=== PATIENT | female | born 1965 | race Caucasian/White ===

== ENCOUNTER 2016-05-14 17:20 | Emergency (ER) | payer OTHER ==
[2016-05-14] MEDS ORDERED: APRESOLINE IV ONE (20:22)
[2016-05-14 20:44] LABS: Hematocrit 32.2 % (30.3-42.9); Hemoglobin 10.5 gm/dl (10.1-14.3); Mean Corpuscular HGB Conc 33 % (30-34); Mean Corpuscular Hemoglobin 27 pg (28-32); Mean Corpuscular Volume 82 fl (79-97); Platelet Count 280 K/mm3 (140-440); Red Blood Count 3.91 M/mm3 (3.65-5.03); Red Cell Distribution Width 14.4 % (13.2-15.2); White Blood Count 10.5 K/mm3 (4.5-11.0)
[2016-05-14 20:54] LABS: INR 0.97 (0.87-1.13)
[2016-05-14 20:56] LABS: Partial Thromboplastin Time 38.5 Sec. (24.2-36.6)
[2016-05-14 21:02] LABS: Anion Gap 18 mmol/L; Blood Urea Nitrogen 7 mg/dL (7-17); Calcium 8.4 mg/dL (8.4-10.2); Carbon Dioxide 23 mmol/L (22-30); Chloride 100.4 mmol/L (98-107); Glucose 255 mg/dL (65-100); Potassium 3.8 mmol/L (3.6-5.0); Sodium 138 mmol/L (137-145)
[2016-05-14] MEDS ORDERED: NORMODYNE PO ONE (21:29)
--- NOTE | 2016-05-14 21:49 | Emergency Department Report ---
HPI - General Chief Complaint: Chest Pain Time Seen by Provider: 05/14/16 19:25 - HPI HPI: The patient is a 50-year-old female with a history of hypertension, who presents for evaluation of palpitations. The patient states that for the past week she has experienced intermittent self resolving episodes of racing of the heart, moderate to severe, exacerbated with lying flat at nighttime. She also complains of episodes of mild tiredness, elicited with exertion, relieved with rest, also for the past one to 2 weeks. The patient denies fever, neck pain, chest pain, parasthesias, dyspnea, cough, hemoptysis, syncope, unilateral leg swelling, calf muscle pain, history of DVT or PE, recent immobilization, or history of cancer. She shares that she also presents to the emergency department secondary to recurrent episodes of elevated blood pressure. ED Past Medical Hx - Past Medical History Previous Medical History?: Yes Hx Hypertension: Yes Hx Diabetes: Yes - Surgical History Past Surgical History?: No - Social History Smoking Status: Never Smoker Substance Use Type: None - Medications Home Medications: Home Medications Medication Instructions Recorded Confirmed Last Taken Type Furosemide [Lasix TAB] 40 mg PO QDAY PRN 05/14/16 05/14/16 Unknown History Hydrochlorothiazide [HCTZ] 25 mg PO QDAY 05/14/16 05/14/16 05/14/16 History Labetalol HCl 600 mg PO BID 05/14/16 05/14/16 05/14/16 History Potassium Chloride [K-Dur] 20 meq PO QDAY 05/14/16 05/14/16 05/14/16 History cloNIDine [Catapres] 0.1 mg PO BID PRN 05/14/16 05/14/16 Unknown History metFORMIN [Glucophage] 500 mg PO BID 05/14/16 05/14/16 05/14/16 History ED Review of Systems ROS: Stated complaint: SOB/CHEST PAIN Other details as noted in HPI Constitutional: denies: fever; reports tiredness ENT: denies: throat or neck pain Respiratory: denies: cough, shortness of breath Cardiovascular: reports palpitations denies: chest pain Endocrine: denies unexplained weight loss or gain Gastrointestinal: denies: abdominal pain, nausea Genitourinary: denies: dysuria Musculoskeletal: denies: leg swelling Skin: denies: rash Neurological: denies: headache Hematological/Lymphatic: denies: easy bleeding or easy bruising Psych: denies sadness or hopelessness Physical Exam - Physical Exam Vital Signs: Vital Signs 05/14/16 05/14/16 05/14/16 17:41 19:38 20:03 Temperature 98.9 F Pulse Rate 91 H 88 Respiratory 18 18 18 Rate Blood Pressure 149/72 Blood Pressure 170/88 [Right] O2 Sat by Pulse 99 100 100 Oximetry 05/14/16 05/14/16 20:36 21:00 Temperature Pulse Rate 81 97 H Respiratory 20 Rate Blood Pressure 179/81 Blood Pressure 168/82 [Right] O2 Sat by Pulse 100 Oximetry Physical Exam: General: well-nourished, well-developed, no acute distress Head: Normocephalic, atraumatic Eyes: normal sclera ENT: Mucous membranes are pink and moist Neck: trachea midline, neck supple, No neck stiffness, no cervical adenopathy Respiratory: Breath sounds equal bilaterally, no wheezing, rales, or rhonchi Cardio: S1 and S2 present, no murmurs, rubs, gallops, capillary refill is brisk Abdomen: Normoactive bowel sounds, soft abdomen, no rigidity, no guarding or rebound tenderness Musc: No pitting edema of legs Skin: No rash Neuro: no facial drooping, normal speech Psych: Normal affect ED Course Vital Signs 05/14/16 05/14/16 05/14/16 17:41 19:38 20:03 Temperature 98.9 F Pulse Rate 91 H 88 Respiratory 18 18 18 Rate Blood Pressure 149/72 Blood Pressure 170/88 [Right] O2 Sat by Pulse 99 100 100 Oximetry 05/14/16 05/14/16 20:36 21:00 Temperature Pulse Rate 81 97 H Respiratory 20 Rate Blood Pressure 179/81 Blood Pressure 168/82 [Right] O2 Sat by Pulse 100 Oximetry ED Medical Decision Making - Lab Data Result diagrams: 05/14/16 20:30 05/14/16 20:30 - Medical Decision Making The patient was seen and examined by myself. The patient is placed on a quality assurance monitor and continuous pulse ox. On initial evaluation, the patient was found to be in no distress. EKG exhibited normal sinus rhythm and rate, and was negative for arrhythmia or findings suggestive of ACS. Labs and imaging are obtained. The patient is given IV hydralazine for her elevated blood pressure. Chest x-ray is negative for pneumothorax, focal consolidation, pulmonary vascular congestion, pleural effusion, or other obvious acute cardiopulmonary disease process. Lab results were non-concerning including nml levels of TSH, T4, BNP, troponin, WBC, hemoglobin, hematocrit, electrolytes, renal function. On reexamination the patient's blood pressure was found to decrease outside of range concerning for hypertensive emergency. The patient is stable for discharge with outpatient follow-up. The patient is given follow-up and return instructions. The patient expressed understanding and agreed with the plan. The patient is discharged in stable condition. Critical care attestation.: If time is entered above; I have spent that time in minutes in the direct care of this critically ill patient, excluding procedure time. ED Disposition Clinical Impression: Hypertensive urgency, Palpitations, Acute hyperglycemia Disposition: DISCHARGED TO HOME OR SELFCARE Is pt being admited?: No Does the pt Need Aspirin: No Condition: Stable Instructions: Chronic Hypertension (ED), Diabetic Hyperglycemia (ED) Referrals: PRIMARY CARE, [Primary Care Provider] - 3-5 Days Time of Disposition: 21:32
[2016-05-14] MEDS ORDERED: TYLENOL ONE (22:48)
[2016-05-14] MEDS ORDERED: TYLENOL PO ONE (22:53)
[2016-05-14 22:58] VITALS: BP 142/90
--- NOTE | 2016-05-15 08:13 | XRay Report ---
AP CHEST : 05/14/16 20:31 CLINICAL: Chest pain. COMPARISON:None FINDINGS: Normal heart and pulmonary vessels. The lungs are normally expanded and clear. The bones and soft tissues are unremarkable. IMPRESSION: Normal chest.
== END 2016-05-14 22:57 | disposition home or self-care (01) ==
LOC: ED 17:20
DX: I10 Essential (primary) hypertension (principal); R00.2 Palpitations; E11.65 Type 2 diabetes mellitus with hyperglycemia
CPT/HCPCS: 36415; 71010; 80048; 82962; 83880; 84439; 84443; 84484; 84703; 85027; 85610; 85730; 93005; 93010; 96374; 99284; J0360

== ENCOUNTER 2016-10-24 16:02 | Emergency (ER) | payer OTHER ==
[2016-10-24 16:21] VITALS: BP 118/64
[2016-10-24 17:02] LABS: Anion Gap 19 mmol/L; Blood Urea Nitrogen 14 mg/dL (7-17); Calcium 8.5 mg/dL (8.4-10.2); Carbon Dioxide 26 mmol/L (22-30); Chloride 95.7 mmol/L (98-107); Glucose 194 mg/dL (65-100); Potassium 3.3 mmol/L (3.6-5.0); Sodium 137 mmol/L (137-145)
--- NOTE | 2016-10-24 17:03 | XRay Report ---
ROUTINE CHEST, TWO VIEWS: SOB. PA and lateral views demonstrate the heart and mediastinal contour to be of normal size and shape. The lungs are clear and fully expanded and the soft tissues and bony structures are normal. IMPRESSION: Normal study.
[2016-10-24 17:04] LABS: Basophils % (Auto) 0.6 % (0.0-1.8); Eosinophils % (Auto) 1.4 % (0.0-4.3); Hematocrit 25.4 % (30.3-42.9); Hemoglobin 8.4 gm/dl (10.1-14.3); Mean Corpuscular HGB Conc 33 % (30-34); Mean Corpuscular Hemoglobin 27 pg (28-32); Mean Corpuscular Volume 81 fl (79-97); Platelet Count 300 K/mm3 (140-440); Red Blood Count 3.13 M/mm3 (3.65-5.03); Red Cell Distribution Width 14.2 % (13.2-15.2); White Blood Count 9.4 K/mm3 (4.5-11.0)
== END 2016-10-24 19:48 | disposition left against medical advice (07) ==
LOC: ED 16:02
DX: E86.0 Dehydration (principal); R06.02 Shortness of breath; E11.9 Type 2 diabetes mellitus without complications; I10 Essential (primary) hypertension; Z88.1 Allergy status to other antibiotic agents; Z88.8 Allergy status to other drugs, medicaments and biological substances; Z53.21 Procedure and treatment not carried out due to patient leaving prior to being seen by health care provider
CPT/HCPCS: 36415; 71020; 80048; 84484; 84703; 85025; 93005; 93010

== ENCOUNTER 2016-10-25 13:10 | Emergency (ER) | payer OTHER ==
[2016-10-25 14:17] LABS: Basophils % (Auto) 0.6 % (0.0-1.8); Eosinophils % (Auto) 1.8 % (0.0-4.3); Hematocrit 24.4 % (30.3-42.9); Mean Corpuscular HGB Conc 33 % (30-34); Mean Corpuscular Hemoglobin 27 pg (28-32); Mean Corpuscular Volume 82 fl (79-97); Platelet Count 275 K/mm3 (140-440); Red Blood Count 2.99 M/mm3 (3.65-5.03); Red Cell Distribution Width 14.2 % (13.2-15.2); White Blood Count 9.4 K/mm3 (4.5-11.0)
[2016-10-25 14:37] LABS: Alanine Aminotransferase 11 units/L (7-56); Albumin 3.4 g/dL (3.9-5); Alkaline Phosphatase 52 units/L (35-129); Anion Gap 21 mmol/L; Blood Urea Nitrogen 12 mg/dL (7-17); Calcium 8.6 mg/dL (8.4-10.2); Carbon Dioxide 23 mmol/L (22-30); Chloride 98.1 mmol/L (98-107); Glucose 243 mg/dL (65-100); Potassium 3.2 mmol/L (3.6-5.0); Sodium 139 mmol/L (137-145); Total Protein 6.7 g/dL (6.3-8.2)
[2016-10-25] MEDS ORDERED: NACL 0.9% 1000 ML 1,000 ML IV ONE ×2 (14:37→14:58)
--- NOTE | 2016-10-25 16:19 | Emergency Department Report ---
HPI - General Chief Complaint: Dizziness Time Seen by Provider: 10/25/16 14:49 - HPI HPI: Patient is a 51-year-old female with a history of chronic anemia, presents for evaluation of dizziness and generalized weakness. The patient reports for the past greater than one week, she has experienced on and off dizziness and generalized weakness, severe and constant for the past one day, exacerbated with standing up and exertion, and improved with lying flat and wrist. The patient denies fever, headache, neck pain, paresthesias, focal motor weakness, blurry vision, ear pain, tinnitus, chest pain, hemoptysis, dyspnea, abdominal pain, confusion or altered mental status, or recent URI or diarrhea. ED Past Medical Hx - Past Medical History Hx Hypertension: Yes Hx Diabetes: Yes - Surgical History Additional Surgical History: - Social History Smoking Status: Never Smoker Substance Use Type: None - Medications Home Medications: Home Medications Medication Instructions Recorded Confirmed Last Taken Type Furosemide [Lasix TAB] 40 mg PO QDAY PRN 05/14/16 05/14/16 Unknown History Hydrochlorothiazide [HCTZ] 25 mg PO QDAY 05/14/16 05/14/16 05/14/16 History Labetalol HCl 600 mg PO BID 05/14/16 05/14/16 05/14/16 History Potassium Chloride [K-Dur] 20 meq PO QDAY 05/14/16 05/14/16 05/14/16 History cloNIDine [Catapres] 0.1 mg PO BID PRN 05/14/16 05/14/16 Unknown History metFORMIN [Glucophage] 500 mg PO BID 05/14/16 05/14/16 05/14/16 History Iron,Carbonyl [Iron Chews] 15 mg PO QDAY #20 tab.chew 10/25/16 Unknown Rx ED Review of Systems ROS: Stated complaint: SOB/WEAK Other details as noted in HPI Constitutional: denies: fever; reports lightheadedness ENT: denies: throat or neck pain Respiratory: denies: cough, shortness of breath Cardiovascular: denies: chest pain Endocrine: denies unexplained weight loss or gain Gastrointestinal: denies: abdominal pain, nausea Genitourinary: denies: dysuria Musculoskeletal: denies: leg swelling Skin: denies: rash Neurological: denies: headache Hematological/Lymphatic: denies: easy bleeding or easy bruising Psych: denies sadness or hopelessness Physical Exam - Physical Exam Vital Signs: Vital Signs 10/25/16 10/25/16 10/25/16 13:28 14:09 14:10 Temperature 98.1 F Pulse Rate 93 H 100 H 101 H Respiratory 16 14 Rate Blood Pressure 122/60 O2 Sat by Pulse 100 Oximetry 10/25/16 10/25/16 10/25/16 14:11 14:12 14:13 Temperature Pulse Rate 96 H 97 H 95 H Respiratory 14 23 21 Rate Blood Pressure 125/69 120/73 117/65 O2 Sat by Pulse 100 99 Oximetry 10/25/16 10/25/16 10/25/16 14:14 14:16 14:30 Temperature Pulse Rate 94 H 93 H 92 H Respiratory 15 14 12 Rate Blood Pressure 117/65 117/65 120/66 O2 Sat by Pulse 100 100 100 Oximetry 10/25/16 10/25/16 10/25/16 15:00 15:30 16:00 Temperature Pulse Rate 87 81 91 H Respiratory 16 13 13 Rate Blood Pressure 120/66 111/57 150/89 O2 Sat by Pulse 100 100 100 Oximetry Physical Exam: General: well-nourished, well-developed, no acute distress Head: Normocephalic, atraumatic Eyes: normal sclera ENT: Mucous membranes are pale and dry Neck: No neck stiffness, no cervical adenopathy Respiratory: Breath sounds equal bilaterally, no wheezing, rales, or rhonchi Cardio: S1 and S2 present, no murmurs, rubs, gallops, capillary refill is delayed Abdomen: Normoactive bowel sounds, soft abdomen, no rigidity, no guarding or rebound tenderness Chest WALL/Back: No tenderness to palpation of the chest wall, no CVA tenderness with percussion Musc: No pitting edema Skin: No rash Neuro: no facial drooping, normal speech Psych: Normal affect ED Course Vital Signs 10/25/16 10/25/16 10/25/16 13:28 14:09 14:10 Temperature 98.1 F Pulse Rate 93 H 100 H 101 H Respiratory 16 14 Rate Blood Pressure 122/60 O2 Sat by Pulse 100 Oximetry 10/25/16 10/25/16 10/25/16 14:11 14:12 14:13 Temperature Pulse Rate 96 H 97 H 95 H Respiratory 14 23 21 Rate Blood Pressure 125/69 120/73 117/65 O2 Sat by Pulse 100 99 Oximetry 10/25/16 10/25/16 10/25/16 14:14 14:16 14:30 Temperature Pulse Rate 94 H 93 H 92 H Respiratory 15 14 12 Rate Blood Pressure 117/65 117/65 120/66 O2 Sat by Pulse 100 100 100 Oximetry 10/25/16 10/25/16 10/25/16 15:00 15:30 16:00 Temperature Pulse Rate 87 81 91 H Respiratory 16 13 13 Rate Blood Pressure 120/66 111/57 150/89 O2 Sat by Pulse 100 100 100 Oximetry ED Medical Decision Making - Lab Data Result diagrams: 10/25/16 13:56 10/25/16 13:56 - Medical Decision Making The patient was seen and examined by myself. The patient is placed on a monitor technician and continuous pulse ox. On initial evaluation, the patient was found to be in no distress. Evaluation orders were placed. The patient is given 1 L normal saline fluid bolus for treatment of dehydration. Lab results reveal low hemoglobin of 8, with normal platelet level, coags, and BNP. The patient was reevaluated and reported that their symptoms were markedly improved. The patient is stable for discharge with outpatient follow-up. The patient is given follow-up and return instructions. The patient expressed understanding and agreed with the plan. The patient is discharged in stable condition. Critical care attestation.: If time is entered above; I have spent that time in minutes in the direct care of this critically ill patient, excluding procedure time. ED Disposition Clinical Impression: Anemia due to blood loss, acute, Dehydration, Generalized weakness, Orthostatic dizziness Disposition: - TO HOME OR SELFCARE Is pt being admited?: No Does the pt Need Aspirin: No Condition: Stable Instructions: Dehydration (ED), Iron Deficiency Anemia (ED), Weakness (ED), Dizziness (ED), Anemia (ED) Prescriptions: Iron,Carbonyl [Iron Chews] 15 mg PO QDAY #20 tab.chew Referrals: PRIMARY CARE, [Primary Care Provider] - 3-5 Days Time of Disposition: 16:19
[2016-10-25 17:38] VITALS: BP 158/85
== END 2016-10-25 17:38 | disposition home or self-care (01) ==
LOC: ED 13:10
DX: D62 Acute posthemorrhagic anemia (principal); E86.0 Dehydration; R53.1 Weakness; R42 Dizziness and giddiness; I10 Essential (primary) hypertension; E11.9 Type 2 diabetes mellitus without complications
CPT/HCPCS: 36415; 80053; 83880; 85025; 85379; 86850; 86900; 86901; 93005; 93010; 96360; 96361; 99284; J7030

== ENCOUNTER 2016-10-28 16:03 | Emergency (ER) | payer OTHER ==
--- NOTE | 2016-10-28 16:42 | Emergency Department Report ---
Chief Complaint: Weakness Stated Complaint: LBP Time Seen by Provider: 10/28/16 16:30 - HPI History of Present Illness: here 2 days ago return w same see labs from last visit co la pain dizzy unsteady on gait clonidine patch removed she is off lasix bc out of them. still taking antihtn despite bp 80/ at home will need educated h/h low last visit labs/12 lead ordered - Exam Vital Signs: Vital Signs 10/28/16 16:28 Temperature 98.4 F Pulse Rate 91 H Respiratory 20 Rate Blood Pressure 118/82 O2 Sat by Pulse 99 Oximetry MSE screening note: Focused history and physical exam performed. Due to findings the following was ordered: ED Disposition for MSE Condition: Stable
[2016-10-28 17:25] LABS: Basophils % (Auto) 0.8 % (0.0-1.8); Eosinophils % (Auto) 1.9 % (0.0-4.3); Hematocrit 24.9 % (30.3-42.9); Hemoglobin 8.2 gm/dl (10.1-14.3); Mean Corpuscular HGB Conc 33 % (30-34); Mean Corpuscular Hemoglobin 27 pg (28-32); Mean Corpuscular Volume 81 fl (79-97); Platelet Count 318 K/mm3 (140-440); Red Blood Count 3.06 M/mm3 (3.65-5.03); Red Cell Distribution Width 14.7 % (13.2-15.2); White Blood Count 10.1 K/mm3 (4.5-11.0)
[2016-10-28 17:33] LABS: Iron 21 ug/dL (37-170); Total Iron Binding Capacity 318 mcg/dL (250-450)
[2016-10-28 17:35] LABS: Alanine Aminotransferase 11 units/L (7-56); Albumin 3.6 g/dL (3.9-5); Albumin/Globulin Ratio 1.1 %; Alkaline Phosphatase 56 units/L (35-129); Anion Gap 21 mmol/L; Blood Urea Nitrogen 8 mg/dL (7-17); Calcium 8.5 mg/dL (8.4-10.2); Carbon Dioxide 24 mmol/L (22-30); Chloride 96.5 mmol/L (98-107); Glucose 122 mg/dL (65-100); Potassium 3.1 mmol/L (3.6-5.0); Sodium 138 mmol/L (137-145); Total Protein 6.9 g/dL (6.3-8.2)
[2016-10-28 17:45] LABS: INR 0.91 (0.87-1.13)
[2016-10-28 17:46] LABS: Partial Thromboplastin Time 41.6 Sec. (24.2-36.6)
[2016-10-28 21:31] VITALS: BP 143/89
--- NOTE | 2016-11-01 20:15 | ED Elopement Review ---
ED Pt Elopement review - Results review Lab results: Laboratory Tests 10/28/16 10/28/16 10/28/16 16:51 16:51 16:51 WBC RBC Hgb Hct MCV MCH MCHC RDW Plt Count Lymph % (Auto) [place] % (Auto) Eos % (Auto) Baso % (Auto) Lymph # [place] # Eos # Baso # Seg Neutrophils % Seg Neutrophils # PT 12.2 INR 0.91 APTT 41.6 H Sodium 138 Potassium 3.1 L Chloride 96.5 L Carbon Dioxide 24 Anion Gap 21 BUN 8 Creatinine 0.8 Estimated GFR > 60 BUN/Creatinine Ratio 10.00 Glucose 122 H Calcium 8.5 Magnesium 1.20 L Iron 21 L TIBC 318 Total Bilirubin 0.20 AST 14 ALT 11 Alkaline Phosphatase 56 Troponin T < 0.010 Total Protein 6.9 Albumin 3.6 L Albumin/Globulin Ratio 1.1 Blood Type Antibody Screen HERON Antibody Screen 10/28/16 10/28/16 16:55 16:57 WBC 10.1 RBC 3.06 L Hgb 8.2 L Hct 24.9 L MCV 81 MCH 27 L MCHC 33 RDW 14.7 Plt Count 318 Lymph % (Auto) 24.8 [place] % (Auto) 5.3 Eos % (Auto) 1.9 Baso % (Auto) 0.8 Lymph # 2.5 [place] # 0.5 Eos # 0.2 Baso # 0.1 Seg Neutrophils % 67.2 Seg Neutrophils # 6.8 PT INR APTT Sodium Potassium Chloride Carbon Dioxide Anion Gap BUN Creatinine Estimated GFR BUN/Creatinine Ratio Glucose Calcium Magnesium Iron TIBC Total Bilirubin AST ALT Alkaline Phosphatase Troponin T Total Protein Albumin Albumin/Globulin Ratio Blood Type B POSITIVE Antibody Screen TNR HERON Antibody Screen Negative - Call Back decision Pt Call Back Decision: No action required
== END 2016-10-28 21:45 | disposition left against medical advice (07) ==
LOC: ED 16:03
DX: Z53.21 Procedure and treatment not carried out due to patient leaving prior to being seen by health care provider (principal)
CPT/HCPCS: 36415; 80053; 83550; 83735; 84484; 85025; 85610; 85730; 86850; 86900; 86901; 93005; 93010

== ENCOUNTER 2017-12-15 17:31 | Emergency (ER) | payer OTHER ==
[2017-12-15] MEDS ORDERED: TYLENOL ONE (17:46)
[2017-12-15] MEDS ORDERED: TORADOL IV ONE (19:58)
[2017-12-15 20:39] LABS: Basophils # (Auto) 0.1 K/mm3 (0.0-0.1); Basophils % (Auto) 1.2 % (0.0-1.8); Eosinophils # (Auto) 0.4 K/mm3 (0.0-0.4); Eosinophils % (Auto) 4.3 % (0.0-4.3); Hematocrit 35.7 % (30.3-42.9); Hemoglobin 12.3 gm/dl (10.1-14.3); Lymphocytes # (Auto) 2.7 K/mm3 (1.2-5.4); Lymphocytes % (Auto) 29.9 % (13.4-35.0); Mean Corpuscular HGB Conc 35 % (30-34); Mean Corpuscular Hemoglobin 29 pg (28-32); Mean Corpuscular Volume 83 fl (79-97); Monocytes # (Auto) 0.5 K/mm3 (0.0-0.8); Monocytes % (Auto) 6.1 % (0.0-7.3); Platelet Count 250 K/mm3 (140-440); Red Blood Count 4.32 M/mm3 (3.65-5.03); Red Cell Distribution Width 13.4 % (13.2-15.2)
--- NOTE | 2017-12-15 21:02 | Cat Scan Report ---
FINAL REPORT PROCEDURE: CT HEAD/BRAIN WO CON TECHNIQUE: Computerized tomography of the head was performed without contrast material. HISTORY: headache elev BP COMPARISON: No prior studies are available for comparison. FINDINGS: Skull and scalp: Normal. Paranasal sinuses: Normal. Ventricles and subarachnoid spaces: Normal. Cerebrum: No evidence of hemorrhage, acute infarction or mass . Cerebellum and brainstem: No evidence of hemorrhage, acute infarction or mass. Vasculature: Normal. Comments: None. IMPRESSION: Normal Examination
[2017-12-15 21:04] LABS: BUN/Creatinine Ratio 9; Blood Urea Nitrogen 6 mg/dL (7-17); Calcium 9.2 mg/dL (8.4-10.2); Hemolysis Index 12
--- NOTE | 2017-12-15 21:22 | Emergency Department Report ---
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 The patient's blood pressure 180/95 and patient was given 0.2 Catapres with no relief of her symptoms at the doctor's office she was sent into the emergency department for evaluation. Patient denies any chest pain patient states she is compliant with her meds. Severity scale (0 -10): 9 - Related Data Home Medications Medication Instructions Recorded Confirmed Last Taken Furosemide [Lasix TAB] 40 mg PO QDAY PRN 05/14/16 05/14/16 Unknown Labetalol HCl 600 mg PO BID 05/14/16 05/14/16 05/14/16 Potassium Chloride [K-Dur] 20 meq PO QDAY 05/14/16 05/14/16 05/14/16 cloNIDine [Catapres] 0.1 mg PO BID PRN 05/14/16 05/14/16 Unknown hydroCHLOROthiazide [HCTZ] 25 mg PO QDAY 05/14/16 05/14/16 05/14/16 metFORMIN [Glucophage] 500 mg PO BID 05/14/16 05/14/16 05/14/16 Previous Rx's Medication Instructions Recorded Last Taken Type Iron,Carbonyl [Iron Chews] 15 mg PO QDAY #20 tab.chew 10/25/16 Unknown Rx hydrALAZINE [Apresoline TAB] 50 mg PO Q8HR #90 tab 12/15/17 Unknown Rx Allergies Allergy/AdvReac Type Severity Reaction Status Date / Time ciprofloxacin [From Cipro] Allergy Itching Verified 10/24/16 16:17 ciprofloxacin HCl Allergy Itching Verified 10/24/16 16:17 [From Cipro] metoclopramide HCl Allergy Itching Verified 10/24/16 16:17 [From Reglan] ED Review of Systems ROS: Stated complaint: HIGH BP Other details as noted in HPI Comment: All other systems reviewed and negative ED Past Medical Hx - Past Medical History Hx Hypertension: Yes Hx Diabetes: Yes - Surgical History Additional Surgical History: - Social History Smoking Status: Never Smoker Substance Use Type: None - Medications Home Medications: Home Medications Medication Instructions Recorded Confirmed Last Taken Type Furosemide [Lasix TAB] 40 mg PO QDAY PRN 05/14/16 05/14/16 Unknown History Labetalol HCl 600 mg PO BID 05/14/16 05/14/16 05/14/16 History Potassium Chloride [K-Dur] 20 meq PO QDAY 05/14/16 05/14/16 05/14/16 History cloNIDine [Catapres] 0.1 mg PO BID PRN 05/14/16 05/14/16 Unknown History hydroCHLOROthiazide [HCTZ] 25 mg PO QDAY 05/14/16 05/14/16 05/14/16 History metFORMIN [Glucophage] 500 mg PO BID 05/14/16 05/14/16 05/14/16 History Iron,Carbonyl [Iron Chews] 15 mg PO QDAY #20 tab.chew 10/25/16 Unknown Rx hydrALAZINE [Apresoline TAB] 50 mg PO Q8HR #90 tab 12/15/17 Unknown Rx ED Physical Exam - General Limitations: No Limitations General appearance: alert, in no apparent distress - Head Head exam: Present: atraumatic, normocephalic - Eye Eye exam: Present: normal appearance - ENT ENT exam: Present: mucous membranes moist - Neck Neck exam: Present: normal inspection - Respiratory Respiratory exam: Present: normal lung sounds bilaterally. Absent: respiratory distress, wheezes, rales, rhonchi - Cardiovascular Cardiovascular Exam: Present: regular rate, normal rhythm. Absent: systolic murmur, diastolic murmur, rubs, gallop - GI/Abdominal GI/Abdominal exam: Present: soft, normal bowel sounds. Absent: distended, tenderness, guarding, rebound - Extremities Exam Extremities exam: Present: normal inspection - Back Exam Back exam: Present: normal inspection - Neurological Exam Neurological exam: Present: alert, oriented X3 - Psychiatric Psychiatric exam: Present: normal affect, normal mood - Skin Skin exam: Present: warm, dry, intact, normal color. Absent: rash ED Course Vital Signs 12/15/17 12/15/17 12/15/17 17:39 19:43 19:45 Temperature 98.5 F Pulse Rate 80 67 Respiratory 16 15 Rate Blood Pressure 175/85 176/90 O2 Sat by Pulse 100 98 100 Oximetry 12/15/17 12/15/17 20:01 20:15 Temperature Pulse Rate 66 63 Respiratory 21 17 Rate Blood Pressure 172/90 170/91 O2 Sat by Pulse 98 98 Oximetry ED Medical Decision Making - Lab Data Result diagrams: 12/15/17 20:02 12/15/17 20:02 - Radiology Data Ordering Physician: KATHRINE BROWN MD Date of Service: 12/15/17 Procedure(s): CT head/brain wo con Accession Number(s): [id number] cc: KATHRINE BROWN MD FINAL REPORT PROCEDURE: CT HEAD/BRAIN WO CON TECHNIQUE: Computerized tomography of the head was performed without contrast material. HISTORY: headache elev BP COMPARISON: No prior studies are available for comparison. FINDINGS: Skull and scalp: Normal. Paranasal sinuses: Normal. Ventricles and subarachnoid spaces: Normal. Cerebrum: No evidence of hemorrhage, acute infarction or mass . Cerebellum and brainstem: No evidence of hemorrhage, acute infarction or mass. Vasculature: Normal. Comments: None. IMPRESSION: Normal Examination Transcribed By: CO Dictated By: DAWN GANDARA MD Electronically Authenticated By: DAWN GANDARA MD Signed Date/Time: 12/15/172100 - Medical Decision Making Patient blood pressure did decrease to 150s over 85 systolic. Patient will be discharged home. Patient is on multiple medications 1 includes hydralazine 50 mg twice a day. This will be increased to 3 times a day Critical care attestation.: If time is entered above; I have spent that time in minutes in the direct care of this critically ill patient, excluding procedure time. ED Disposition Clinical Impression: Hypertensive urgency Disposition: DC-01 TO HOME OR SELFCARE Is pt being admited?: No Does the pt Need Aspirin: No Condition: Stable Instructions: Hypertension (ED) Prescriptions: hydrALAZINE [Apresoline TAB] 50 mg PO Q8HR #90 tab Referrals: PRIMARY CAREMD [Primary Care Provider] - 3-5 Days Time of Disposition: 21:22
[2017-12-15 21:25] VITALS: BP 164/79
== END 2017-12-15 21:39 | disposition home or self-care (01) ==
LOC: ED 17:31
DX: I10 Essential (primary) hypertension (principal); E11.9 Type 2 diabetes mellitus without complications; R51 Headache; Z88.1 Allergy status to other antibiotic agents; Z79.899 Other long term (current) drug therapy
CPT/HCPCS: 36415; 70450; 80048; 85025; 96374; 99284; J1885

== ENCOUNTER 2018-07-09 14:51 | Emergency (ER) | payer OTHER ==
--- NOTE | 2018-07-09 15:18 | Emergency Department Report ---
Chief Complaint: High BP Stated Complaint: HBP 214/112 Time Seen by Provider: 07/09/18 15:13 - HPI History of Present Illness: went to [facility] for a BP check sent here due to elevated BP (214/112) clonidine 0.2 mg at 2:15 PM and again 30 min, also wearing clonidine patch exertional SOB, dizziness like room spinning no CP, No CRAIN denies smoking, ETOH use PMHx HTN, DM, hypokalemia, no cardiac hx also takes labetolol, hydralazine took both this AM at 9 AM BP improved at 185/97 in triage MSE screening note: Focused history and physical exam performed. Due to findings the following was ordered: labs ED Disposition for MSE Condition: Stable
[2018-07-09 15:57] LABS: INR 0.87 (0.87-1.13)
[2018-07-09 15:58] LABS: Partial Thromboplastin Time 39.8 Sec. (24.2-36.6)
[2018-07-09] MEDS ORDERED: NACL 0.9% 500 ML 500 ML IV ONE (16:10)
[2018-07-09] MEDS ORDERED: APRESOLINE IV ONE (16:10)
[2018-07-09 16:14] LABS: Alanine Aminotransferase 18 units/L (7-56); Albumin 3.7 g/dL (3.9-5); BUN/Creatinine Ratio 14; Blood Urea Nitrogen 7 mg/dL (7-17); Hemolysis Index 30
--- NOTE | 2018-07-09 16:33 | XRay Report ---
PROCEDURE: XR CHEST ROUTINE 2V TECHNIQUE: PA and lateral views of the chest HISTORY: symptomatic HTN, SOB COMPARISONS: Chest x-ray dated October 24, 2016 FINDINGS: There is prominence of the interstitial markings in both lungs with peribronchial thickening. This ap pears to be similar in appearance to the previous study. There is no definite evidence of focal infiltrate and no evidence of pneumothorax or pleural fluid co llection. The cardiac silhouette appears to be normal size. The thoracic aorta and bony structures are unremarkable. Surgical clips in the right upper quadrant most likely represent previous cholecystectomy. IMPRESSION: 1. Prominence of the interstitial markings and peribronchial thickening that appears to be chronic. No definite evidence of an acute pulmonary process. If further imaging is required, CT chest may be helpful. This document is electronically signed by Shazia Kingston MD., July 09 2018 04:30:49 PM ET
[2018-07-09 16:51] LABS: Bilirubin,Urine NEG (Negative); Blood,Urine NEG (Negative); Color,Urine Colorless (Yellow); Mucus,Urine FEW /HPF; Protein,Urine <15 mg/dL mg/dL (Negative); Urobilinogen,Urine < 2.0 mg/dL (<2.0); WBC,Urine < 1.0 /HPF (0.0-6.0)
--- NOTE | 2018-07-09 17:15 | Emergency Department Report ---
ED General Adult HPI - General Chief complaint: High BP Stated complaint: HBP 214/112 Time Seen by Provider: 07/09/18 15:13 Source: patient Mode of arrival: Ambulatory Limitations: No Limitations - History of Present Illness Initial comments: Patient is a 52-year-old [place] female who is presenting with elevated blood pressure. Patient states she has some mild dizziness and mild shortness of breath this morning. Patient denies any chest pain. Patient was at her primary care physician's office and had a blood pressure 214/112. Patient states that she has not missed any doses of her medication. Patient is on multiple blood pressure medicines including a Catapres patch. Patient took 0.2 a Catapres before arrival and is very concerned her blood pressure still elevated. Severity scale (0 -10): 0 - Related Data Home Medications Medication Instructions Recorded Confirmed Last Taken Furosemide [Lasix TAB] 40 mg PO QDAY PRN 05/14/16 05/14/16 Unknown Labetalol HCl 600 mg PO BID 05/14/16 05/14/16 05/14/16 Potassium Chloride [K-Dur] 20 meq PO QDAY 05/14/16 05/14/16 05/14/16 cloNIDine [Catapres] 0.1 mg PO BID PRN 05/14/16 05/14/16 Unknown hydroCHLOROthiazide [HCTZ] 25 mg PO QDAY 05/14/16 05/14/16 05/14/16 metFORMIN [Glucophage] 500 mg PO BID 05/14/16 05/14/16 05/14/16 Previous Rx's Medication Instructions Recorded Last Taken Type Iron,Carbonyl [Iron Chews] 15 mg PO QDAY #20 tab.chew 10/25/16 Unknown Rx hydrALAZINE [Apresoline TAB] 50 mg PO Q8HR #90 tab 12/15/17 Unknown Rx traMADol [Ultram] 50 mg PO Q6HR PRN #10 tablet 12/15/17 Unknown Rx Allergies Allergy/AdvReac Type Severity Reaction Status Date / Time ciprofloxacin [From Cipro] Allergy Itching Verified 07/09/18 15:05 ciprofloxacin HCl Allergy Itching Verified 07/09/18 15:05 [From Cipro] metoclopramide HCl Allergy Itching Verified 07/09/18 15:05 [From Reglan] ED Review of Systems ROS: Stated complaint: HBP 214/112 Other details as noted in HPI Comment: All other systems reviewed and negative ED Past Medical Hx - Past Medical History Previous Medical History?: Yes Hx Hypertension: Yes Hx Diabetes: Yes Additional medical history: low K+ - Surgical History Past Surgical History?: Yes Hx Cholecystectomy: Yes Additional Surgical History: - Social History Smoking Status: Never Smoker Substance Use Type: None - Medications Home Medications: Home Medications Medication Instructions Recorded Confirmed Last Taken Type Furosemide [Lasix TAB] 40 mg PO QDAY PRN 05/14/16 05/14/16 Unknown History Labetalol HCl 600 mg PO BID 05/14/16 05/14/16 05/14/16 History Potassium Chloride [K-Dur] 20 meq PO QDAY 05/14/16 05/14/16 05/14/16 History cloNIDine [Catapres] 0.1 mg PO BID PRN 05/14/16 05/14/16 Unknown History hydroCHLOROthiazide [HCTZ] 25 mg PO QDAY 05/14/16 05/14/16 05/14/16 History metFORMIN [Glucophage] 500 mg PO BID 05/14/16 05/14/16 05/14/16 History Iron,Carbonyl [Iron Chews] 15 mg PO QDAY #20 tab.chew 10/25/16 Unknown Rx hydrALAZINE [Apresoline TAB] 50 mg PO Q8HR #90 tab 12/15/17 Unknown Rx traMADol [Ultram] 50 mg PO Q6HR PRN #10 tablet 12/15/17 Unknown Rx ED Physical Exam - General Limitations: No Limitations General appearance: alert, in no apparent distress - Head Head exam: Present: atraumatic, normocephalic - Eye Eye exam: Present: normal appearance - ENT ENT exam: Present: mucous membranes moist - Neck Neck exam: Present: normal inspection - Respiratory Respiratory exam: Present: normal lung sounds bilaterally. Absent: respiratory distress, wheezes, rales, rhonchi - Cardiovascular Cardiovascular Exam: Present: regular rate, normal rhythm, normal heart sounds. Absent: systolic murmur, diastolic murmur, rubs, gallop - GI/Abdominal GI/Abdominal exam: Present: soft, normal bowel sounds. Absent: distended, tenderness, guarding, rebound - Extremities Exam Extremities exam: Present: normal inspection - Back Exam Back exam: Present: normal inspection - Neurological Exam Neurological exam: Present: alert, oriented X3 - Psychiatric Psychiatric exam: Present: normal affect, normal mood - Skin Skin exam: Present: warm, dry, intact, normal color. Absent: rash ED Course Vital Signs 07/09/18 07/09/18 15:14 16:30 Temperature 98.6 F Pulse Rate 83 84 Respiratory 20 Rate Blood Pressure 185/97 185/97 O2 Sat by Pulse 99 Oximetry ED Medical Decision Making - Lab Data Result diagrams: 07/09/18 15:35 Lab Results 07/09/18 07/09/18 07/09/18 Range/Units 15:35 15:35 15:35 PT 12.3 (12.2-14.9) Sec. INR 0.87 (0.87-1.13) APTT 39.8 H (24.2-36.6) Sec. Sodium 137 (137-145) mmol/L Potassium 3.6 (3.6-5.0) mmol/L Chloride 100.4 (98-107) mmol/L Carbon Dioxide 25 (22-30) mmol/L Anion Gap 15 mmol/L BUN 7 (7-17) mg/dL Creatinine 0.5 L (0.7-1.2) mg/dL Estimated GFR > 60 ml/min BUN/Creatinine Ratio 14 % Glucose 306 H (65-100) mg/dL Calcium 9.0 (8.4-10.2) mg/dL Total Bilirubin 0.40 (0.1-1.2) mg/dL AST 15 (5-40) units/L ALT 18 (7-56) units/L Alkaline Phosphatase 93 (35-129) units/L Troponin T < 0.010 (0.00-0.029) ng/mL Total Protein 6.5 (6.3-8.2) g/dL Albumin 3.7 L (3.9-5) g/dL Albumin/Globulin Ratio 1.3 % Urine Color (Yellow) Urine Turbidity (Clear) Urine pH (5.0-7.0) Ur Specific [place] (1.003-1.030) Urine Protein (Negative) mg/dL Urine Glucose (UA) (Negative) mg/dL Urine Ketones (Negative) mg/dL Urine Blood (Negative) Urine Nitrite (Negative) Urine Bilirubin (Negative) Urine Urobilinogen (<2.0) mg/dL Ur Leukocyte Esterase (Negative) Urine WBC (Auto) (0.0-6.0) /HPF Urine RBC (Auto) (0.0-6.0) /HPF U Epithel Cells (Auto) (0-13.0) /HPF Urine Mucus /HPF 07/09/18 Range/Units 16:14 PT (12.2-14.9) Sec. INR (0.87-1.13) APTT (24.2-36.6) Sec. Sodium (137-145) mmol/L Potassium (3.6-5.0) mmol/L Chloride (98-107) mmol/L Carbon Dioxide (22-30) mmol/L Anion Gap mmol/L BUN (7-17) mg/dL Creatinine (0.7-1.2) mg/dL Estimated GFR ml/min BUN/Creatinine Ratio % Glucose (65-100) mg/dL Calcium (8.4-10.2) mg/dL Total Bilirubin (0.1-1.2) mg/dL AST (5-40) units/L ALT (7-56) units/L Alkaline Phosphatase (35-129) units/L Troponin T (0.00-0.029) ng/mL Total Protein (6.3-8.2) g/dL Albumin (3.9-5) g/dL Albumin/Globulin Ratio % Urine Color Colorless (Yellow) Urine Turbidity Clear (Clear) Urine pH 7.0 (5.0-7.0) Ur Specific [place] 1.000 L (1.003-1.030) Urine Protein <15 mg/dl (Negative) mg/dL Urine Glucose (UA) >=500 (Negative) mg/dL Urine Ketones Neg (Negative) mg/dL Urine Blood Neg (Negative) Urine Nitrite Neg (Negative) Urine Bilirubin Neg (Negative) Urine Urobilinogen < 2.0 (<2.0) mg/dL Ur Leukocyte Esterase Neg (Negative) Urine WBC (Auto) < 1.0 (0.0-6.0) /HPF Urine RBC (Auto) 1.0 (0.0-6.0) /HPF U Epithel Cells (Auto) < 1.0 (0-13.0) /HPF Urine Mucus Few /HPF - EKG Data -: EKG Interpreted by Hi EKG shows normal: sinus rhythm, axis, intervals, QRS complexes (septal Q waves), ST-T waves - Medical Decision Making Patient was given hydralazine and her pressure did respond well. Blood pressure on discharge was 152/82. Critical care attestation.: If time is entered above; I have spent that time in minutes in the direct care of this critically ill patient, excluding procedure time. ED Disposition Clinical Impression: Hypertensive urgency Disposition: DC-01 TO HOME OR SELFCARE Is pt being admited?: No Does the pt Need Aspirin: No Condition: Stable Instructions: Hypertension (ED) Additional Instructions: Please follow-up with your primary care physician to see if they would like to change your regimen Time of Disposition: 17:13
[2018-07-09 18:18] VITALS: BP 137/86
== END 2018-07-09 18:16 | disposition home or self-care (01) ==
LOC: ED 14:51
DX: I16.0 Hypertensive urgency (principal); I10 Essential (primary) hypertension; E11.9 Type 2 diabetes mellitus without complications; Z90.49 Acquired absence of other specified parts of digestive tract; Z88.1 Allergy status to other antibiotic agents; Z88.8 Allergy status to other drugs, medicaments and biological substances; Z79.84 Long term (current) use of oral hypoglycemic drugs
CPT/HCPCS: 36415; 71046; 80053; 81001; 84484; 85610; 85730; 93005; 93010; 96361; 96374; 99284; J0360; J7040

== ENCOUNTER 2018-07-15 08:08 | Outpatient (CLI) | payer OTHER ==
[2018-07-15] MEDS ORDERED: LEXISCAN IV ONE ×2 (10:11→10:15)
[2018-07-15 10:54] VITALS: BP 133/76
--- NOTE | 2018-07-15 12:24 | Treadmill Report ---
STRESS TEST INDICATION: Chest pain. ORDERING PHYSICIAN: Dr. Sulema Shaffer. FINDINGS: The left ventricular cavity is normal in size. The left ventricle is normal in size and systolic function. The left ventricular ejection fraction is measured at 69%. There is normal wall motion and wall thickening. There is no scintigraphic evidence of myocardial ischemia. There is evidence of a fixed anterior wall defect secondary to overlying breast attenuation artifact. CONCLUSION: 1. No scintigraphic evidence of myocardial ischemia. 2. Fixed anterior wall defect secondary to overlying breast attenuation artifact noted on planar imaging. 3. Normal left ventricular size and systolic function. 4. This is a low risk myocardial perfusion scan associated with cardiovascular event rate of less than 1% in the next 1 year. JOB# [id number] ZAY/HERSON
== END 2018-07-15 08:09 | disposition home or self-care (01) ==
LOC: CARD 08:08
PROVIDERS: ATTEND Internal Medicine Cardiovascular Disease
DX: I10 Essential (primary) hypertension (principal); R07.9 Chest pain, unspecified; Z90.49 Acquired absence of other specified parts of digestive tract
CPT/HCPCS: 78452; 93017; 93306; A9502; J2785

== ENCOUNTER 2018-07-24 19:25 | Emergency (ER) | payer OTHER ==
[2018-07-24] MEDS ORDERED: SOLU-Medrol IV ONE (20:33)
[2018-07-24] MEDS ORDERED: PEPCID IV ONE (20:33)
[2018-07-24] MEDS ORDERED: APRESOLINE IV ONE ×2 (20:34→23:48)
[2018-07-24] MEDS ORDERED: DUONEB *Not for PRN Use IH ONE (20:34)
--- NOTE | 2018-07-24 20:44 | Emergency Department Report ---
HPI - General Chief Complaint: Dyspnea/Respdistress Time Seen by Provider: 07/24/18 20:30 - HPI HPI: 52-year-old female presents to the emergency department via EMS with complaint of shortness of breath that started about 4 PM this afternoon. The patient ate at [employer] at about 3:30 and says that the symptoms started about a half an hour later. It is associated with a dry cough. She denies any fever, back pain, nausea, vomiting or diaphoresis. She has a past medical history of non-insulin dependent diabetes and hypertension. The patient just had a negative stress test and echocardiogram one week ago. No recent travel or sick contacts at home. ED Past Medical Hx - Past Medical History Hx Hypertension: Yes Hx Diabetes: Yes Additional medical history: low K+ - Surgical History Hx Cholecystectomy: Yes Additional Surgical History: - Social History Smoking Status: Never Smoker Substance Use Type: None - Medications Home Medications: Home Medications Medication Instructions Recorded Confirmed Last Taken Type Furosemide [Lasix TAB] 40 mg PO QDAY PRN 05/14/16 05/14/16 Unknown History Labetalol HCl 600 mg PO BID 05/14/16 05/14/16 05/14/16 History Potassium Chloride [K-Dur] 20 meq PO QDAY 05/14/16 05/14/16 05/14/16 History cloNIDine [Catapres] 0.1 mg PO BID PRN 05/14/16 05/14/16 Unknown History hydroCHLOROthiazide [HCTZ] 25 mg PO QDAY 05/14/16 05/14/16 05/14/16 History metFORMIN [Glucophage] 500 mg PO BID 05/14/16 05/14/16 05/14/16 History Iron,Carbonyl [Iron Chews] 15 mg PO QDAY #20 tab.chew 10/25/16 Unknown Rx hydrALAZINE [Apresoline TAB] 50 mg PO Q8HR #90 tab 12/15/17 Unknown Rx traMADol [Ultram] 50 mg PO Q6HR PRN #10 tablet 12/15/17 Unknown Rx ALBUTEROL Inhaler (OR & NICU) 2 puff IH QID PRN #1 inhalation 07/25/18 Unknown Rx [ProAir HFA Inhaler] Famotidine [Pepcid] 20 mg PO BID #6 tablet 07/25/18 Unknown Rx predniSONE [Deltasone] 20 mg PO BID #6 tab 07/25/18 Unknown Rx ED Review of Systems ROS: Stated complaint: SAMANTHA Other details as noted in HPI Comment: All other systems reviewed and negative Constitutional: denies: chills, fever Eyes: denies: eye pain, vision change ENT: denies: ear pain, throat pain Respiratory: cough, shortness of breath Cardiovascular: denies: palpitations, edema Gastrointestinal: denies: abdominal pain, vomiting Genitourinary: denies: dysuria, frequency Musculoskeletal: denies: back pain, arthralgia Skin: denies: rash, lesions Neurological: denies: headache, weakness Physical Exam - Physical Exam Vital Signs: Vital Signs 07/24/18 20:07 Temperature 98.1 F Pulse Rate 75 Respiratory 22 Rate Blood Pressure 193/94 [Right] O2 Sat by Pulse 100 Oximetry Physical Exam: GENERAL: The patient is well-developed well-nourished. HEENT: Normocephalic. Atraumatic. Patient has moist mucous membranes. EYES: Extraocular motions are intact. Pupils are equal and reactive to light bilaterally. NECK: Supple. Trachea is midline. CHEST/LUNGS: Clear to auscultation. There is tachypnea but no excessive muscle use. There is no respiratory distress noted. HEART/CARDIOVASCULAR: Regular. There is no tachycardia. There is no obvious murmur. ABDOMEN: Abdomen is soft, nontender. Patient has normal bowel sounds. There is no abdominal distention. SKIN: Skin is warm and dry. NEURO: The patient is awake, alert, and oriented. The patient is cooperative. The patient has no focal neurologic deficits. The patient has normal speech. MUSCULOSKELETAL: There is no tenderness or deformity. There is no evidence of acute injury. ED Course Vital Signs 07/24/18 20:07 Temperature 98.1 F Pulse Rate 75 Respiratory 22 Rate Blood Pressure 193/94 [Right] O2 Sat by Pulse 100 Oximetry ED Medical Decision Making - Lab Data Result diagrams: 07/24/18 21:12 07/24/18 21:12 - EKG Data -: EKG Interpreted by Me EKG shows normal: sinus rhythm, axis (left axis deviation), intervals, QRS complexes (he was to the septal and anterior leads, LVH), ST-T waves Rate: normal - EKG Data When compared to previous EKG there are: no significant change Interpretation: unchanged when compared t (07/09/18) - Radiology Data Radiology results: report reviewed, image reviewed interpreted by me: Chest x-ray does not show any pneumothorax, pleural effusion, pneumonia or obvious focal consolidation. PROCEDURE: CT ANGIOGRAM OF THE CHEST FOR PULMONARY EMBOLISM TECHNIQUE: Computerized axial tomographic angiography of the chest and pulmonary arteries was performed after the IV injection of iodinated nonionic contrast. The image data was postprocessed using maximum intensity projection (MIP) and 2-dimensional multiplanar reformatted (MPR) techniques. The examination is specifically tailored to the evaluation of the pulmonary arteries per clinical request. Automated exposure control, adjustment of mA and/or kV according to patient size, or iterative reconstruction dose optimization techniques were utilized. CPT G9637, 74305 HISTORY: Shortness of breath R06.02, chest pain unspecified R07.9 , COMPARISONS: None . FINDINGS: Heart and pericardium: Normal. Thoracic aorta: Normal. Pulmonary vasculature: Normal. No pulmonary emboli. Lymph nodes: No enlarged thoracic lymph nodes. Lungs: Normal. Pleural space: No effusion, thickening, or pneumothorax. Musculoskeletal structures: No significant abnormality. Upper abdominal structures: No significant abnormality. IMPRESSION: No evidence of pulmonary embolism No acute pulmonary process. This document is electronically signed by David Coronado MD., July 24 2018 11:25:02 PM ET Transcribed By: [facility] [place]ictated By: DAVID CORONADO Electronically Authenticated By: DAVID CORONADO Signed Date/Time: 07/24/18 6272 - Medical Decision Making This patient presents to the emergency department with complaint of some shortness of breath and a possible allergic reaction after eating out at a restaurant this afternoon. On presentation, the patient does have some tachypnea but her heart and lung sounds are normal to auscultation. She is not using any accessory muscles and her vital signs are stable including being afebrile and no hypoxia. An EKG was done that shows some Q waves to the anterior leads but otherwise no morphology consistent with ST elevation [place] or any dysrhythmia. A chest x-ray was done that does not show any focal consolidation, pneumonia, pneumothorax, pleural effusions, or any other acute process. Her labs are mostly unremarkable except for a slightly elevated and equivocal d-dimer for which a CT angiography of the chest was done that did not show any signs of any pulmonary embolism, dissection or aneurysm. She also had some mild hyperglycemia but does not appear consistent with diabetic ketoacidosis. The patient was given steroids, Pepcid, a breathing treatment. She presents with elevated blood pressure as she has not taken her hydralazine or beta alvin this evening yet. She was given 2 doses of antihypertensive medication and it came down to a more reasonable level. The patient required a little bit of pain medication for a headache that she developed but this resolved. There were no signs of any focal, motor or sensory deficits in her cranial nerves appeared intact. The patient says she is feeling greatly improved and asking for discharge home. She has good follow-up with primary care and cardiology, if necessary. She will return to the ER with any worsening or return of her symptoms, or if any acute distress. - Differential Diagnosis allergic reaction, bronchitis, asthma, PE, COPD Critical Care Time: No Critical care attestation.: If time is entered above; I have spent that time in minutes in the direct care of this critically ill patient, excluding procedure time. ED Disposition Clinical Impression: Shortness of breath Allergic reaction Qualifiers: Encounter type: initial encounter Qualified Code(s): T78.40XA - Allergy, unspecified, initial encounter Hypertension Qualifiers: Hypertension type: essential hypertension Qualified Code(s): I10 - Essential (primary) hypertension Disposition: - TO HOME OR SELFCARE Is pt being admited?: No Condition: Stable Instructions: Dyspnea (ED), Hypertension (ED) Additional Instructions: Please follow-up with your primary care physician in the next few days. Return to the emergency department with any return or worsening of your symptoms, any acute distress. Take her blood pressure medications as previously prescribed. Try and stay away from high in salt and caffeinated products to help with her blood pressure. Keep a blood pressure log. Prescriptions: predniSONE [Deltasone] 20 mg PO BID #6 tab Famotidine [Pepcid] 20 mg PO BID #6 tablet ALBUTEROL Inhaler (OR & NICU) [ProAir HFA Inhaler] 2 puff IH QID PRN #1 inhalation PRN Reason: Shortness Of Breath Referrals: NIKUNJ TORRES MD [Primary Care Provider] - 2-3 Days Forms: Work/School Release Form(ED) Time of Disposition: 01:55
[2018-07-24 21:30] LABS: Basophils # (Auto) 0.1 K/mm3 (0.0-0.1); Basophils % (Auto) 0.9 % (0.0-1.8); Eosinophils # (Auto) 0.2 K/mm3 (0.0-0.4); Eosinophils % (Auto) 2.1 % (0.0-4.3); Hematocrit 39.9 % (30.3-42.9); Hemoglobin 13.3 gm/dl (10.1-14.3); Lymphocytes # (Auto) 2.3 K/mm3 (1.2-5.4); Lymphocytes % (Auto) 24.1 % (13.4-35.0); Mean Corpuscular HGB Conc 33 % (30-34); Mean Corpuscular Volume 82 fl (79-97); Monocytes # (Auto) 0.8 K/mm3 (0.0-0.8); Monocytes % (Auto) 7.9 % (0.0-7.3); Platelet Count 283 K/mm3 (140-440); Red Blood Count 4.83 M/mm3 (3.65-5.03); Red Cell Distribution Width 13.7 % (13.2-15.2)
[2018-07-24 21:44] LABS: BUN/Creatinine Ratio 9; Blood Urea Nitrogen 8 mg/dL (7-17); Calcium 9.3 mg/dL (8.4-10.2); Hemolysis Index 11
--- NOTE | 2018-07-24 21:49 | XRay Report ---
PROCEDURE: XR CHEST 1V AP TECHNIQUE: Chest radiograph , PA and lateral views. HISTORY: Chest Pain COMPARISONS: 07/09/2018 . FINDINGS: Heart: Normal. Mediastinum/Vessels: Normal. Lungs/Pleural space: Normal. Bony thorax: No acute osseous abnormality. Life support devices: None. IMPRESSION: No acute cardiopulmonary abnormality. No change. This document is electronically signed by Sima Garcia MD., July 24 2018 09:47:32 PM ET
[2018-07-24] MEDS ORDERED: K-DUR PO ONE (22:03)
[2018-07-24] MEDS ORDERED: ATIVAN IV ONE (22:11)
--- NOTE | 2018-07-24 23:27 | Cat Scan Report ---
PROCEDURE: CT ANGIOGRAM OF THE CHEST FOR PULMONARY EMBOLISM TECHNIQUE: Computerized axial tomographic angiography of the chest and pulmonary arteries was perfor med after the IV injection of iodinated nonionic contrast. The image data was postprocessed using max imum intensity projection (MIP) and 2-dimensional multiplanar reformatted (MPR) techniques. The exami nation is specifically tailored to the evaluation of the pulmonary arteries per clinical request. Au tomated exposure control, adjustment of mA and/or kV according to patient size, or iterative reconstr uction dose optimization techniques were utilized. CPT G9637, 79579 HISTORY: Shortness of breath R06.02, chest pain unspecified R07.9 , COMPARISONS: None . FINDINGS: Heart and pericardium: Normal. Thoracic aorta: Normal. Pulmonary vasculature: Normal. No pulmonary emboli. Lymph nodes: No enlarged thoracic lymph nodes. Lungs: Normal. Pleural space: No effusion, thickening, or pneumothorax. Musculoskeletal structures: No significant abnormality. Upper abdominal structures: No significant abnormality. IMPRESSION: No evidence of pulmonary embolism No acute pulmonary process. This document is electronically signed by Garrick Coronado MD., July 24 2018 11:25:02 PM ET
[2018-07-24] MEDS ORDERED: TYLENOL PO ONE (23:48)
[2018-07-25] MEDS ORDERED: MORPHINE IV ONE (00:33)
[2018-07-25] MEDS ORDERED: TORADOL IV ONE (01:15)
[2018-07-25] MEDS: MORPHINE IV ONE ×2 (01:18→01:29)
[2018-07-25 02:11] VITALS: BP 164/88
== END 2018-07-25 02:11 | disposition home or self-care (01) ==
LOC: ED 19:25
DX: T78.40XA Allergy, unspecified, initial encounter (principal); I10 Essential (primary) hypertension; R06.02 Shortness of breath; R05 Cough; E11.9 Type 2 diabetes mellitus without complications; Z90.49 Acquired absence of other specified parts of digestive tract; Z79.84 Long term (current) use of oral hypoglycemic drugs; Z88.1 Allergy status to other antibiotic agents; Z88.8 Allergy status to other drugs, medicaments and biological substances; X58.XXXA Exposure to other specified factors, initial encounter
CPT/HCPCS: 36415; 71045; 71275; 80048; 84484; 85025; 85379; 93005; 93010; 94640; 96374; 96375; 96376; 99285; J0360; J1885; J2060; J2270; J2930; Q9967

== ENCOUNTER 2018-08-04 10:38 | Emergency (ER) | payer OTHER ==
--- NOTE | 2018-08-04 11:57 | Emergency Department Report ---
ED General Adult HPI - General Chief complaint: Dyspnea/Respdistress Stated complaint: HIGH BLOOD SUGAR Time Seen by Provider: 08/04/18 11:09 Source: patient, EMS Mode of arrival: Stretcher Limitations: No Limitations - History of Present Illness Initial comments: 55 yo female with history of hypertension and diabetes presents to ED via EMS. Patient states she is on clonidine patch, hydralazine, labetalol for her blood pressure. Patient forgot that she had on clonidine 0.2 mg patch from yesterday and she applied another patch this morning, and also took her oral BP meds. Patient states she later began feeling lightheaded and dizzy. States she took her blood pressure at home and it was low with systolic BP in the 90s. 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 Delaney, and EMS was called. Fingerstick showed glucose in the 500s. She states she is feeling short of breath, however, states she is feeling better now. Believes it was likely just anxiety from her blood pressure being low and her feeling like she was going to pass out. enies chest pain. Denies tobacco use. -: This morning Improves with: none Associated Symptoms: shortness of breath. denies: chest pain, cough, fever/chills, headaches, nausea/vomiting - Related Data Home Medications Medication Instructions Recorded Confirmed Last Taken Furosemide [Lasix TAB] 40 mg PO QDAY PRN 05/14/16 05/14/16 Unknown Labetalol HCl 300 mg PO BID 05/14/16 08/04/18 05/14/16 Potassium Chloride [K-Dur] 20 meq PO QDAY 05/14/16 05/14/16 05/14/16 cloNIDine [Catapres] 0.1 mg PO BID PRN 05/14/16 05/14/16 Unknown hydroCHLOROthiazide [HCTZ] 25 mg PO QDAY 05/14/16 05/14/16 05/14/16 metFORMIN [Glucophage] 500 mg PO BID 05/14/16 08/04/18 05/14/16 hydrALAZINE [Apresoline TAB] 100 mg PO BID 08/04/18 08/04/18 Unknown Previous Rx's Medication Instructions Recorded Last Taken Type Iron,Carbonyl [Iron Chews] 15 mg PO QDAY #20 tab.chew 10/25/16 Unknown Rx traMADol [Ultram] 50 mg PO Q6HR PRN #10 tablet 12/15/17 Unknown Rx ALBUTEROL Inhaler (OR & NICU) 2 puff IH QID PRN #1 inhalation 07/25/18 Unknown Rx [ProAir HFA Inhaler] Famotidine [Pepcid] 20 mg PO BID #6 tablet 07/25/18 Unknown Rx predniSONE [Deltasone] 20 mg PO BID #6 tab 07/25/18 Unknown Rx Allergies Allergy/AdvReac Type Severity Reaction Status Date / Time ciprofloxacin [From Cipro] Allergy Itching Verified 07/09/18 15:05 ciprofloxacin HCl Allergy Itching Verified 07/09/18 15:05 [From Cipro] metoclopramide HCl Allergy Itching Verified 07/09/18 15:05 [From Reglan] ED Review of Systems ROS: Stated complaint: HIGH BLOOD SUGAR Other details as noted in HPI Comment: All other systems reviewed and negative Constitutional: denies: chills, fever Respiratory: shortness of breath. denies: cough Cardiovascular: denies: chest pain Gastrointestinal: denies: abdominal pain, nausea, vomiting Neurological: other (reports lightheadedness). denies: headache ED Past Medical Hx - Past Medical History Hx Hypertension: Yes Hx Diabetes: Yes Additional medical history: low K+ - Surgical History Hx Cholecystectomy: Yes Additional Surgical History: - Social History Smoking Status: Never Smoker Substance Use Type: None - Medications Home Medications: Home Medications Medication Instructions Recorded Confirmed Last Taken Type Furosemide [Lasix TAB] 40 mg PO QDAY PRN 05/14/16 05/14/16 Unknown History Labetalol HCl 300 mg PO BID 05/14/16 08/04/18 05/14/16 History Potassium Chloride [K-Dur] 20 meq PO QDAY 05/14/16 05/14/16 05/14/16 History cloNIDine [Catapres] 0.1 mg PO BID PRN 05/14/16 05/14/16 Unknown History hydroCHLOROthiazide [HCTZ] 25 mg PO QDAY 05/14/16 05/14/16 05/14/16 History metFORMIN [Glucophage] 500 mg PO BID 05/14/16 08/04/18 05/14/16 History Iron,Carbonyl [Iron Chews] 15 mg PO QDAY #20 tab.chew 10/25/16 Unknown Rx traMADol [Ultram] 50 mg PO Q6HR PRN #10 tablet 12/15/17 Unknown Rx ALBUTEROL Inhaler (OR & NICU) 2 puff IH QID PRN #1 inhalation 07/25/18 Unknown Rx [ProAir HFA Inhaler] Famotidine [Pepcid] 20 mg PO BID #6 tablet 07/25/18 Unknown Rx predniSONE [Deltasone] 20 mg PO BID #6 tab 07/25/18 Unknown Rx hydrALAZINE [Apresoline TAB] 100 mg PO BID 08/04/18 08/04/18 Unknown History ED Physical Exam - General Limitations: No Limitations General appearance: alert, in no apparent distress - Head Head exam: Present: atraumatic, normocephalic - Eye Eye exam: Present: normal appearance - ENT ENT exam: Present: mucous membranes moist - Respiratory Respiratory exam: Present: normal lung sounds bilaterally. Absent: respiratory distress - Cardiovascular Cardiovascular Exam: Present: regular rate, normal rhythm - GI/Abdominal GI/Abdominal exam: Present: soft. Absent: distended, tenderness - Extremities Exam Extremities exam: Present: normal inspection - Neurological Exam Neurological exam: Present: alert, oriented X3, CN II-XII intact. Absent: motor sensory deficit - Psychiatric Psychiatric exam: Present: normal affect, normal mood - Skin Skin exam: Present: warm, dry, intact, normal color ED Course Vital Signs 08/04/18 08/04/18 08/04/18 11:04 11:05 13:10 Pulse Rate 80 Respiratory 26 H Rate Blood Pressure 149/74 140/61 O2 Sat by Pulse 98 99 97 Oximetry 08/04/18 08/04/18 08/04/18 13:11 13:13 13:15 Pulse Rate 81 80 79 Respiratory 25 H 17 20 Rate Blood Pressure 140/61 140/61 147/77 O2 Sat by Pulse 98 98 96 Oximetry 08/04/18 08/04/18 08/04/18 13:16 13:17 13:19 Pulse Rate 79 77 75 Respiratory 14 24 20 Rate Blood Pressure 147/77 147/77 147/77 O2 Sat by Pulse 98 98 98 Oximetry 08/04/18 08/04/18 08/04/18 13:21 13:23 13:24 Pulse Rate 76 77 79 Respiratory 18 26 H 28 H Rate Blood Pressure 147/77 147/77 147/77 O2 Sat by Pulse 98 97 97 Oximetry 08/04/18 08/04/18 08/04/18 13:25 13:27 13:29 Pulse Rate 81 80 84 Respiratory 19 28 H 20 Rate Blood Pressure 140/61 140/61 140/61 O2 Sat by Pulse 98 98 98 Oximetry 08/04/18 08/04/18 08/04/18 13:30 13:31 13:33 Pulse Rate 79 80 80 Respiratory 28 H 29 H 24 Rate Blood Pressure 146/76 146/76 146/76 O2 Sat by Pulse 97 97 97 Oximetry 08/04/18 08/04/18 08/04/18 13:35 13:36 13:37 Pulse Rate 77 80 79 Respiratory 23 21 24 Rate Blood Pressure 146/76 146/76 146/76 O2 Sat by Pulse 98 98 98 Oximetry 08/04/18 08/04/18 08/04/18 13:39 13:41 13:43 Pulse Rate 80 79 77 Respiratory 27 H 24 17 Rate Blood Pressure 146/76 146/76 146/76 O2 Sat by Pulse 98 98 98 Oximetry 08/04/18 08/04/18 08/04/18 13:44 13:45 13:47 Pulse Rate 79 78 77 Respiratory 27 H 24 19 Rate Blood Pressure 146/76 151/87 151/87 O2 Sat by Pulse 98 98 98 Oximetry 08/04/18 08/04/18 08/04/18 13:49 13:51 13:53 Pulse Rate 79 79 81 Respiratory 24 29 H 15 Rate Blood Pressure 151/87 151/87 151/87 O2 Sat by Pulse 97 97 98 Oximetry 08/04/18 08/04/18 08/04/18 13:55 13:57 13:59 Pulse Rate 79 78 77 Respiratory 28 H 27 H 14 Rate Blood Pressure 146/76 146/76 146/76 O2 Sat by Pulse 98 98 98 Oximetry 08/04/18 08/04/18 08/04/18 14:00 14:01 14:02 Pulse Rate 77 73 74 Respiratory 22 18 18 Rate Blood Pressure 166/85 166/85 151/87 O2 Sat by Pulse 99 98 97 Oximetry 08/04/18 08/04/18 08/04/18 14:03 14:05 14:07 Pulse Rate 75 76 82 Respiratory 26 H 20 17 Rate Blood Pressure 166/85 166/85 166/85 O2 Sat by Pulse 97 97 98 Oximetry 08/04/18 08/04/18 08/04/18 14:09 14:11 14:13 Pulse Rate 79 74 74 Respiratory 24 19 24 Rate Blood Pressure 166/85 166/85 166/85 O2 Sat by Pulse 97 98 98 Oximetry 08/04/18 08/04/18 08/04/18 14:15 14:17 14:19 Pulse Rate 78 78 77 Respiratory 26 H 25 H 22 Rate Blood Pressure 153/88 153/88 153/88 O2 Sat by Pulse 96 98 98 Oximetry 08/04/18 08/04/18 08/04/18 14:21 14:23 14:25 Pulse Rate 76 79 79 Respiratory 12 27 H 19 Rate Blood Pressure 153/88 153/88 153/88 O2 Sat by Pulse 98 97 96 Oximetry 08/04/18 08/04/18 08/04/18 14:27 14:29 14:30 Pulse Rate 78 76 84 Respiratory 17 20 15 Rate Blood Pressure 166/85 166/85 155/89 O2 Sat by Pulse 98 98 96 Oximetry 08/04/18 14:31 Pulse Rate 82 Respiratory 11 L Rate Blood Pressure 155/89 O2 Sat by Pulse 98 Oximetry ED Medical Decision Making - Lab Data Result diagrams: 08/04/18 12:02 08/04/18 12:02 - EKG Data -: EKG Interpreted by Ok EKG shows normal: sinus rhythm, axis, intervals, QRS complexes, ST-T waves Rate: normal - EKG Data Interpretation: no acute changes, LVH - Radiology Data Radiology results: report reviewed, image reviewed - Medical Decision Making 52-year-old female patient with history of hypertension presents to ED with dizziness. Patient states she took her BP meds but forgot to remove her previous clonidine patch. Blood pressure was low, systolic BP in the 90s. Reported mild shortness of breath, however patient in no respiratory distress, O2 sats normal. D-dimer was sent and found to be normal. EKG normal, labs unremarkable, chest x-ray normal. Patient orthostatic, IV fluids given. She is feeling much better at this time. Glucose initially elevated at 470, insulin given, glucose improved to 299. Patient not in DKA. N ED stay patient reported hiccups, which she states she is experience multiple times in the past due to changes in her blood pressure. GI cocktail given, which patient states has helped relieve her symptoms in the past. Will discharge at this time, return precautions given, outpatient follow-up advised. - Differential Diagnosis orthostatic hypotensiion, DKA, hyperglycemia, PE, ACS Critical care attestation.: If time is entered above; I have spent that time in minutes in the direct care of this critically ill patient, excluding procedure time. ED Disposition Clinical Impression: Orthostatic dizziness, Hyperglycemia, Hiccups Disposition: - TO HOME OR SELFCARE Is pt being admited?: No Condition: Stable Instructions: Hypotension (ED), Diabetic Hyperglycemia (ED) Referrals: PRIMARY CARE, [Primary Care Provider] - 3-5 Days Forms: Work/School Release Form(ED) Time of Disposition: 14:34
[2018-08-04 12:16] LABS: Basophils # (Auto) 0.1 K/mm3 (0.0-0.1); Basophils % (Auto) 1.1 % (0.0-1.8); Eosinophils # (Auto) 0.2 K/mm3 (0.0-0.4); Eosinophils % (Auto) 2.4 % (0.0-4.3); Hematocrit 37.1 % (30.3-42.9); Hemoglobin 12.5 gm/dl (10.1-14.3); Lymphocytes # (Auto) 2.4 K/mm3 (1.2-5.4); Lymphocytes % (Auto) 25.8 % (13.4-35.0); Mean Corpuscular HGB Conc 34 % (30-34); Mean Corpuscular Volume 82 fl (79-97); Monocytes # (Auto) 0.6 K/mm3 (0.0-0.8); Monocytes % (Auto) 6.1 % (0.0-7.3); Platelet Count 245 K/mm3 (140-440); Red Blood Count 4.52 M/mm3 (3.65-5.03); Red Cell Distribution Width 13.4 % (13.2-15.2)
[2018-08-04 12:27] LABS: INR 0.88 (0.87-1.13)
[2018-08-04 12:28] LABS: Partial Thromboplastin Time 39.4 Sec. (24.2-36.6)
[2018-08-04 12:41] LABS: BUN/Creatinine Ratio 11; Blood Urea Nitrogen 8 mg/dL (7-17); Calcium 8.9 mg/dL (8.4-10.2); Hemolysis Index 11
--- NOTE | 2018-08-04 12:48 | XRay Report ---
AP CHEST: HISTORY: Shortness of breath AP view of the chest demonstrates a normal mediastinal and cardiac contour with clear lungs and normal bony and soft tissue structures. IMPRESSION: Unremarkable AP chest. No significant change since 07/24/18.
[2018-08-04] MEDS ORDERED: HumuLIN R IV ONE (12:52)
[2018-08-04] MEDS ORDERED: NACL 0.9% 1000 ML 1,000 ML IV ONE (12:52)
[2018-08-04] MEDS ORDERED: ALUM-MAG HYDROX-SIMETH 200-200-20MG/5ML PO ONE ×2 (12:55→14:33)
[2018-08-04] MEDS ORDERED: LIDOCAINE VISCOUS 2% PO ONE (14:33)
[2018-08-04 14:34] VITALS: BP 155/89
== END 2018-08-04 15:00 | disposition home or self-care (01) ==
LOC: ED 10:38
DX: E11.65 Type 2 diabetes mellitus with hyperglycemia (principal); I10 Essential (primary) hypertension; R06.6 Hiccough; Z90.49 Acquired absence of other specified parts of digestive tract; Z79.899 Other long term (current) drug therapy; Z88.1 Allergy status to other antibiotic agents
CPT/HCPCS: 36415; 71045; 80048; 82962; 84484; 85025; 85379; 85610; 85730; 93005; 93010; 96361; 96374; J1815

== ENCOUNTER 2018-10-28 14:19 | Emergency (ER) | payer OTHER ==
[2018-10-28 14:25] VITALS: BP 115/56
--- NOTE | 2018-10-28 14:38 | Event Note ---
ED Screening Note Date of service: 10/28/18 Time: 14:36 ED Screening Note: 53 y/o female comes in for light headedness, n/v abd crampy. Was seen by her pcp was told that she was dehydrated. This initial assessment/diagnostic orders/clinical plan/treatment(s) is/are subject to change based on patients health status, clinical progression and re- assessment by fellow clinical providers in the ED. Further treatment and workup at subsequent clinical providers discretion. Patient/guardian urged not to elope from the ED as their condition may be serious if not clinically assessed and managed. Initial orders include:
[2018-10-28 15:03] LABS: Basophils # (Auto) 0.1 K/mm3 (0.0-0.1); Basophils % (Auto) 0.9 % (0.0-1.8); Eosinophils # (Auto) 0.2 K/mm3 (0.0-0.4); Eosinophils % (Auto) 1.7 % (0.0-4.3); Hemoglobin 12.2 gm/dl (10.1-14.3); Lymphocytes # (Auto) 2.3 K/mm3 (1.2-5.4); Lymphocytes % (Auto) 22.4 % (13.4-35.0); Mean Corpuscular HGB Conc 34 % (30-34); Mean Corpuscular Volume 83 fl (79-97); Monocytes # (Auto) 0.7 K/mm3 (0.0-0.8); Monocytes % (Auto) 6.4 % (0.0-7.3); Platelet Count 242 K/mm3 (140-440); Red Blood Count 4.32 M/mm3 (3.65-5.03); Red Cell Distribution Width 13.2 % (13.2-15.2)
[2018-10-28 15:23] LABS: Alanine Aminotransferase 15 units/L (7-56); BUN/Creatinine Ratio 17; Blood Urea Nitrogen 15 mg/dL (7-17); Calcium 9.4 mg/dL (8.4-10.2); Hemolysis Index 7
[2018-10-28] MEDS ORDERED: K-DUR PO ONE (15:28)
[2018-10-28] MEDS ORDERED: NACL 0.9% 1000 ML 1,000 ML IV ONE (15:28)
[2018-10-28] MEDS ORDERED: ANTIVERT PO ONE (15:29)
[2018-10-28] MEDS ORDERED: ZOFRAN IV ONE (15:30)
[2018-10-28 15:34] LABS: Bacteria,Urine 1+ /HPF (Negative); Bilirubin,Urine NEG (Negative); Blood,Urine SM (Negative); Color,Urine Amber (Yellow); Mucus,Urine 3+ /HPF; Urobilinogen,Urine < 2.0 mg/dL (<2.0)
--- NOTE | 2018-10-28 16:07 | Emergency Department Report ---
ED Dizziness HPI - General Chief Complaint: Dizziness Stated Complaint: LIGHTNESS/SOB/NAUSEA Time Seen by Provider: 10/28/18 15:27 Source: patient Mode of arrival: Ambulatory Limitations: No Limitations - History of Present Illness Initial Comments: This is a 53-year-old female nontoxic, well nourished in appearance, no acute signs of distress presents to the ED with c/o of nausea and vomiting 2 days followed by dizziness and lightheadness. Patient denies any headache or trauma. Patient describes vomiting as food content. Patient denies any abdominal pain, chest pain, short of breath, fever, chills, headache, stiff neck, numbness or tingling. Patient denies any diarrhea or constipation. Patient denies any recent travels. Patient stated allergies to cipro, and metoclopramide. MD Complaint: dizziness, lightheadedness, other (nausea vomiting) -: days(s) Timing: gradual onset Description: "room spinning", lightheadedness Severity: mild Improves With: nothing Worsens With: nothing Associated Symptoms: denies other symptoms. denies: ataxia, chest pain, confusion, cough, diaphoresis, fever/chills, loss of appetite, malaise, rash, seizure, shortness of breath, syncope, weakness - Related Data Home Medications Medication Instructions Recorded Confirmed Last Taken Furosemide [Lasix TAB] 40 mg PO QDAY PRN 05/14/16 05/14/16 Unknown Labetalol HCl 300 mg PO BID 05/14/16 08/04/18 05/14/16 Potassium Chloride [K-Dur] 20 meq PO QDAY 05/14/16 05/14/16 05/14/16 cloNIDine [Catapres] 0.1 mg PO BID PRN 05/14/16 05/14/16 Unknown hydroCHLOROthiazide [HCTZ] 25 mg PO QDAY 05/14/16 05/14/16 05/14/16 metFORMIN [Glucophage] 500 mg PO BID 05/14/16 08/04/18 05/14/16 hydrALAZINE [Apresoline TAB] 100 mg PO BID 08/04/18 08/04/18 Unknown Previous Rx's Medication Instructions Recorded Last Taken Type Iron,Carbonyl [Iron Chews] 15 mg PO QDAY #20 tab.chew 10/25/16 Unknown Rx traMADol [Ultram] 50 mg PO Q6HR PRN #10 tablet 12/15/17 Unknown Rx ALBUTEROL Inhaler (OR & NICU) 2 puff IH QID PRN #1 inhalation 07/25/18 Unknown Rx [ProAir HFA Inhaler] Famotidine [Pepcid] 20 mg PO BID #6 tablet 07/25/18 Unknown Rx predniSONE [Deltasone] 20 mg PO BID #6 tab 07/25/18 Unknown Rx Meclizine [Antivert] 12.5 mg PO BID PRN #10 tablet 10/28/18 Unknown Rx Ondansetron [Zofran Odt] 4 mg PO Q8HR PRN #20 tab.rapdis 10/28/18 Unknown Rx Allergies Allergy/AdvReac Type Severity Reaction Status Date / Time ciprofloxacin [From Cipro] Allergy Itching Verified 10/28/18 14:22 ciprofloxacin HCl Allergy Itching Verified 10/28/18 14:22 [From Cipro] metoclopramide HCl Allergy Itching Verified 10/28/18 14:22 [From Reglan] ED Review of Systems ROS: Stated complaint: LIGHTNESS/SOB/NAUSEA Other details as noted in HPI Constitutional: denies: chills, fever Eyes: denies: eye pain, eye discharge, vision change ENT: denies: ear pain, throat pain Respiratory: denies: cough, shortness of breath, wheezing Cardiovascular: denies: chest pain, palpitations Endocrine: no symptoms reported Gastrointestinal: nausea, vomiting. denies: abdominal pain, diarrhea Genitourinary: denies: urgency, dysuria, discharge Musculoskeletal: denies: back pain, joint swelling, arthralgia Skin: denies: rash, lesions Neurological: vertigo. denies: headache, weakness, paresthesias Psychiatric: denies: anxiety, depression Hematological/Lymphatic: denies: easy bleeding, easy bruising ED Past Medical Hx - Past Medical History Hx Hypertension: Yes Hx Diabetes: Yes Additional medical history: low K+ - Surgical History Hx Cholecystectomy: Yes Additional Surgical History: - Social History Smoking Status: Never Smoker Substance Use Type: None - Medications Home Medications: Home Medications Medication Instructions Recorded Confirmed Last Taken Type Furosemide [Lasix TAB] 40 mg PO QDAY PRN 05/14/16 05/14/16 Unknown History Labetalol HCl 300 mg PO BID 05/14/16 08/04/18 05/14/16 History Potassium Chloride [K-Dur] 20 meq PO QDAY 05/14/16 05/14/16 05/14/16 History cloNIDine [Catapres] 0.1 mg PO BID PRN 05/14/16 05/14/16 Unknown History hydroCHLOROthiazide [HCTZ] 25 mg PO QDAY 05/14/16 05/14/16 05/14/16 History metFORMIN [Glucophage] 500 mg PO BID 05/14/16 08/04/18 05/14/16 History Iron,Carbonyl [Iron Chews] 15 mg PO QDAY #20 tab.chew 10/25/16 Unknown Rx traMADol [Ultram] 50 mg PO Q6HR PRN #10 tablet 12/15/17 Unknown Rx ALBUTEROL Inhaler (OR & NICU) 2 puff IH QID PRN #1 inhalation 07/25/18 Unknown Rx [ProAir HFA Inhaler] Famotidine [Pepcid] 20 mg PO BID #6 tablet 07/25/18 Unknown Rx predniSONE [Deltasone] 20 mg PO BID #6 tab 07/25/18 Unknown Rx hydrALAZINE [Apresoline TAB] 100 mg PO BID 08/04/18 08/04/18 Unknown History Meclizine [Antivert] 12.5 mg PO BID PRN #10 tablet 10/28/18 Unknown Rx Ondansetron [Zofran Odt] 4 mg PO Q8HR PRN #20 tab.rapdis 10/28/18 Unknown Rx ED Physical Exam - General Limitations: No Limitations General appearance: alert, in no apparent distress - Head Head exam: Present: atraumatic, normocephalic - Eye Eye exam: Present: normal appearance, PERRL, EOMI - Neck Neck exam: Present: normal inspection, full ROM. Absent: tenderness, meningismus, lymphadenopathy - Respiratory Respiratory exam: Present: normal lung sounds bilaterally. Absent: respiratory distress, wheezes, rales, rhonchi, stridor, chest wall tenderness, accessory muscle use, decreased breath sounds, prolonged expiratory - Cardiovascular Cardiovascular Exam: Present: regular rate, normal rhythm, normal heart sounds. Absent: irregular rhythm, systolic murmur, diastolic murmur, rubs, gallop - GI/Abdominal GI/Abdominal exam: Present: soft, normal bowel sounds. Absent: distended, tenderness, guarding, rebound, rigid, diminished bowel sounds - Extremities Exam Extremities exam: Present: normal inspection, full ROM - Back Exam Back exam: Present: normal inspection, full ROM - Neurological Exam Neurological exam: Present: alert, oriented X3, normal gait - Expanded Neurological Exam Expanded Patient oriented to: Present: person, place, time Motor strength exam: RUE: 5, LUE: 5, RLE: 5, LLE: 5 Best Eye Response ([place]): (4) open spontaneously Best Motor Response ([place]): (6) obeys commands Best Verbal Response ([place]): (5) oriented [place] Total: 15 - Psychiatric Psychiatric exam: Present: normal affect, normal mood - Skin Skin exam: Present: warm, dry, intact, normal color. Absent: rash ED Course Vital Signs 10/28/18 10/28/18 14:24 15:31 Temperature 98.1 F Pulse Rate 93 H Respiratory 13 15 Rate Blood Pressure 115/56 [Right] O2 Sat by Pulse 98 Oximetry - Reevaluation(s) Reevaluation #1: 10/28/18 16:10 Patient is speaking in full sentences with no signs of distress noted. ED Medical Decision Making - Lab Data Result diagrams: 10/28/18 14:40 10/28/18 14:40 - Medical Decision Making This is a 53-year-old female that presents with hypokalemia, dizziness with nausea and vomiting. Patient is stable and was examined by me. There is no abdominal tenderness. Negative signs of symptoms of appendicitis. Labs obtained. UA obtained. EKG with no significant abnormalities. Vital signs are stable prior to discharge. Patient received Zofran and 1L Normal saline and Antivert in the ED which patient stated symptoms has resovled and subsided. Patient also receveid K= 40 MEQ. Orthostatic vitals obtained. A by mouth challenge has been obtained and patient tolerated well with no nausea vomiting. Patient was also instructed to Follow-up with a primary care doctor in 3-5 days or if symptoms worsen and continue return to emergency room as soon as possible. At time of discharge, the patient does not seem toxic or ill in appearance. No acute signs of distress noted. Patient agrees to discharge treatment plan of care. No further questions noted by the patient. Critical care attestation.: If time is entered above; I have spent that time in minutes in the direct care of this critically ill patient, excluding procedure time. ED Disposition Clinical Impression: Dizziness, Hypokalemia Nausea & vomiting Qualifiers: Vomiting type: unspecified Vomiting Intractability: non-intractable Qualified Code(s): R11.2 - Nausea with vomiting, unspecified Disposition: DC-01 TO HOME OR SELFCARE Is pt being admited?: No Does the pt Need Aspirin: No Condition: Stable Instructions: Vertigo (ED), Acute Nausea and Vomiting (ED), Hypokalemia (ED) Additional Instructions: Follow-up with a primary care doctor in 3-5 days or if symptoms worsen and continue return to emergency room as soon as possible. Prescriptions: Meclizine [Antivert] 12.5 mg PO BID PRN #10 tablet PRN Reason: Vertigo Ondansetron [Zofran Odt] 4 mg PO Q8HR PRN #20 tab.rapdis PRN Reason: Nausea Referrals: [facility] MD LOIDA [Primary Care Provider] - 3-5 Days PRIMARY CAREMD [Referring] - 3-5 Days SELENA MCGRATH MD [Staff Physician] - 3-5 Days [facility] [Outside] - 3-5 Days [facility] [Outside] - 3-5 Days Forms: Work/School Release Form(ED)
== END 2018-10-28 18:16 | disposition home or self-care (01) ==
LOC: ED 14:19
DX: E87.6 Hypokalemia (principal); R11.2 Nausea with vomiting, unspecified; R42 Dizziness and giddiness; I10 Essential (primary) hypertension; E11.9 Type 2 diabetes mellitus without complications; Z88.1 Allergy status to other antibiotic agents; Z79.899 Other long term (current) drug therapy; Z88.5 Allergy status to narcotic agent; Z79.84 Long term (current) use of oral hypoglycemic drugs
CPT/HCPCS: 36415; 80053; 81001; 85025; 93005; 93010; 96361; 96374; 99283; J2405; J7030

== ENCOUNTER 2019-02-15 18:38 | Emergency (ER) | payer OTHER ==
--- NOTE | 2019-02-15 18:49 | Emergency Department Report ---
Blank Doc - Documentation Documentation: 53-year-old female that presents with uncontrolled HTN, SOB and left arm pain with tingling sensation. Also has headache and dizziness. This initial assessment/diagnostic orders/clinical plan/treatment(s) is/are subject to change based on patient's health status, clinical progression and re- assessment by fellow clinical providers in the ED. Further treatment and workup at subsequent clinical providers discretion. Patient/guardians urged not to elope from the ED as their condition may be serious if not clinically assessed and managed. Initial orders include: 1- Patient sent to MAIN ED for further evaluation and treatment 2- labs 3- EKG 4- cXR 5- CT head
[2019-02-15] MEDS ORDERED: XYLOCAINE TOPICAL 4% TP ONE (19:45)
[2019-02-15] MEDS ORDERED: TYLENOL PO ONE (19:45)
--- NOTE | 2019-02-15 19:46 | Emergency Department Report ---
ED General Adult HPI - General Chief complaint: Dizziness Stated complaint: HBP/SOB/LIGHT HEADED/L SIDE PAIN Time Seen by Provider: 02/15/19 18:48 Source: patient, RN notes reviewed, old records reviewed Mode of arrival: Ambulatory Limitations: No Limitations - History of Present Illness Initial comments: Pvt. cardiology: Dr. Suzette Shaffer This is a 53-year-old female. The patient is not known to this provider previously. Her past history includes hypertension, diabetes. She takes metformin, hydralazine, clonidine. She had a negative nuclear cardiac stress test at this hospital in June 2018. Patient presents to the ER today with a complaint of hypertension, intermittent shortness of breath, lightheadedness, sensation like she will pass out. This is associated with mild headache. The headache is frontal and bitemporal. The headache is not sudden or thunderclap in nature. The headache did not which maximal intensity within an hour of onset. It is not the worst headache of her life. The patient meets no complaint of chest pain. She also endorses a sensation of fatigue. She denies vomiting. She denies loss of vision. She denies DVT, and pulmonary embolus risk factors. She also described intermittent left-sided arm tingling. This is now resolved. The patient endorses that she feels quite anxious. -: Gradual Location: head, left, upper extremity Severity scale (0 -10): 0 Quality: other Consistency: other Improves with: other Worsens with: other - Related Data Home Medications Medication Instructions Recorded Confirmed Last Taken Furosemide [Lasix TAB] 40 mg PO QDAY PRN 05/14/16 02/15/19 Unknown Labetalol HCl 300 mg PO BID 05/14/16 02/15/19 05/14/16 cloNIDine [Catapres] 0.1 mg PO BID PRN 05/14/16 02/15/19 Unknown metFORMIN [Glucophage] 500 mg PO BID 05/14/16 02/15/19 05/14/16 hydrALAZINE [Apresoline TAB] 100 mg PO BID 08/04/18 02/15/19 Unknown Previous Rx's Medication Instructions Recorded Last Taken Type Acetaminophen [Non-Aspirin Extra 500 mg PO Q6HR PRN #30 tablet 02/15/19 Unknown Rx Strength] Ibuprofen [Motrin] 600 mg PO Q8H PRN #30 tablet 02/15/19 Unknown Rx Magnesium Oxide 500 mg PO QDAY #10 capsule 02/15/19 Unknown Rx Potassium Chloride 20 meq PO BID #20 packet 02/15/19 Unknown Rx Allergies Allergy/AdvReac Type Severity Reaction Status Date / Time ciprofloxacin [From Cipro] Allergy Itching Verified 10/28/18 14:22 ciprofloxacin HCl Allergy Itching Verified 10/28/18 14:22 [From Cipro] metoclopramide HCl Allergy Itching Verified 10/28/18 14:22 [From Reglan] ED Review of Systems ROS: Stated complaint: HBP/SOB/LIGHT HEADED/L SIDE PAIN Other details as noted in HPI Constitutional: malaise, weakness. denies: fever Eyes: denies: vision change ENT: denies: congestion Respiratory: shortness of breath Cardiovascular: denies: chest pain, palpitations, syncope Gastrointestinal: denies: abdominal pain Genitourinary: denies: dysuria Musculoskeletal: myalgia Skin: denies: lesions Neurological: headache, weakness, paresthesias Psychiatric: anxiety ED Past Medical Hx - Past Medical History Hx Hypertension: Yes Hx Diabetes: Yes Additional medical history: low K+ - Surgical History Hx Cholecystectomy: Yes Additional Surgical History: - Social History Smoking Status: Never Smoker Substance Use Type: None - Medications Home Medications: Home Medications Medication Instructions Recorded Confirmed Last Taken Type Furosemide [Lasix TAB] 40 mg PO QDAY PRN 05/14/16 02/15/19 Unknown History Labetalol HCl 300 mg PO BID 05/14/16 02/15/19 05/14/16 History cloNIDine [Catapres] 0.1 mg PO BID PRN 05/14/16 02/15/19 Unknown History metFORMIN [Glucophage] 500 mg PO BID 05/14/16 02/15/19 05/14/16 History hydrALAZINE [Apresoline TAB] 100 mg PO BID 08/04/18 02/15/19 Unknown History Acetaminophen [Non-Aspirin Extra 500 mg PO Q6HR PRN #30 tablet 02/15/19 Unknown Rx Strength] Ibuprofen [Motrin] 600 mg PO Q8H PRN #30 tablet 02/15/19 Unknown Rx Magnesium Oxide 500 mg PO QDAY #10 capsule 02/15/19 Unknown Rx Potassium Chloride 20 meq PO BID #20 packet 02/15/19 Unknown Rx ED Physical Exam - General Limitations: No Limitations General appearance: alert, in no apparent distress - Head Head exam: Present: atraumatic, normocephalic - Eye Eye exam: Present: normal appearance, PERRL, EOMI, other (visual acuity intact to finger counting, color perception, reading at a close distance). Absent: nystagmus - ENT ENT exam: Present: normal exam, normal orophraynx, mucous membranes moist, TM's normal bilaterally, normal external ear exam - Neck Neck exam: Present: normal inspection, full ROM. Absent: tenderness, meningismus - Respiratory Respiratory exam: Present: normal lung sounds bilaterally. Absent: respiratory distress - Cardiovascular Cardiovascular Exam: Present: regular rate, normal rhythm, normal heart sounds. Absent: bradycardia, tachycardia, irregular rhythm, systolic murmur, diastolic murmur, rubs, gallop - GI/Abdominal GI/Abdominal exam: Present: soft. Absent: distended, tenderness, guarding, rebound, rigid, pulsatile mass - Extremities Exam Extremities exam: Present: normal inspection, full ROM, other (2+ pulses noted in the bilateral upper, lower extremities. There is no long bone tenderness. Musculoskeletal compartments are soft. The pelvis is stable.). Absent: pedal edema, calf tenderness - Back Exam Back exam: Present: normal inspection, full ROM. Absent: CVA tenderness (L), paraspinal tenderness, vertebral tenderness - Neurological Exam Neurological exam: Present: alert, oriented X3, normal gait (there is no past- pointing. Ears normal [id number]. There is no pronator drift. There is normal gait. There is normal tendon gait. There is negative Romberg examination), other (there is no facial droop. The tongue is midline. Extraocular movements are intact bilaterally. Patient speaking in full complete sentences. Shoulder shrug is intact bilaterally. Hearing is grossly intact bilaterally. Visual acuity intact to finger counting and color perception at a close distance. 5/5 strength 4 extremities. Sensation intact to light touch in 4 extremities.). Absent: motor sensory deficit - Psychiatric Psychiatric exam: Present: anxious - Skin Skin exam: Present: warm, dry, intact, normal color. Absent: rash ED Course Vital Signs 02/15/19 02/15/19 02/15/19 18:42 19:33 19:55 Temperature 97.9 F 98.2 F Pulse Rate 84 84 Respiratory 18 14 14 Rate Blood Pressure 129/44 Blood Pressure 135/70 [Left] O2 Sat by Pulse 99 98 Oximetry 02/15/19 02/15/19 02/15/19 20:00 20:55 21:00 Temperature Pulse Rate 80 73 Respiratory 11 L 16 12 Rate Blood Pressure 149/80 133/94 Blood Pressure [Left] O2 Sat by Pulse 94 97 Oximetry 02/15/19 02/15/19 02/16/19 22:00 22:24 00:00 Temperature Pulse Rate 76 71 72 Respiratory 13 10 L 18 Rate Blood Pressure 149/101 133/94 180/92 Blood Pressure [Left] O2 Sat by Pulse 96 98 98 Oximetry 02/16/19 02/16/19 02/16/19 00:52 01:00 02:38 Temperature 98.3 F Pulse Rate 78 79 76 Respiratory 26 H 16 Rate Blood Pressure 180/97 127/72 Blood Pressure 134/74 [Left] O2 Sat by Pulse 97 99 Oximetry ED Medical Decision Making - Lab Data Result diagrams: 02/15/19 19:08 02/15/19 19:08 Vital Signs 02/15/19 02/15/19 02/15/19 18:42 19:33 19:55 Temperature 97.9 F 98.2 F Pulse Rate 84 84 Respiratory 18 14 14 Rate Blood Pressure 129/44 Blood Pressure 135/70 [Left] O2 Sat by Pulse 99 98 Oximetry 02/15/19 02/15/19 02/15/19 20:00 20:55 21:00 Temperature Pulse Rate 80 73 Respiratory 11 L 16 12 Rate Blood Pressure 149/80 133/94 Blood Pressure [Left] O2 Sat by Pulse 94 97 Oximetry 02/15/19 22:00 Temperature Pulse Rate 76 Respiratory 13 Rate Blood Pressure 149/101 Blood Pressure [Left] O2 Sat by Pulse 96 Oximetry Lab Results 02/15/19 02/15/19 02/15/19 Range/Units 19:08 19:08 19:08 WBC 8.8 (4.5-11.0) K/mm3 RBC 4.22 (3.65-5.03) M/mm3 Hgb 11.5 (10.1-14.3) gm/dl Hct 34.7 (30.3-42.9) % MCV 82 (79-97) fl MCH 27 L (28-32) pg MCHC 33 (30-34) % RDW 13.3 (13.2-15.2) % Plt Count 279 (140-440) K/mm3 Lymph % (Auto) 37.2 H (13.4-35.0) % [place] % (Auto) 7.4 H (0.0-7.3) % Eos % (Auto) 3.7 (0.0-4.3) % Baso % (Auto) 1.4 (0.0-1.8) % Lymph # 3.3 (1.2-5.4) K/mm3 [place] # 0.7 (0.0-0.8) K/mm3 Eos # 0.3 (0.0-0.4) K/mm3 Baso # 0.1 (0.0-0.1) K/mm3 Seg Neutrophils % 50.3 (40.0-70.0) % Seg Neutrophils # 4.4 (1.8-7.7) K/mm3 PT 12.1 L (12.2-14.9) Sec. INR 0.92 (0.87-1.13) APTT 40.1 H (24.2-36.6) Sec. D-Dimer (0-234) ng/mlDDU Sodium 142 (137-145) mmol/L Potassium 2.9 L* (3.6-5.0) mmol/L Chloride 102.6 (98-107) mmol/L Carbon Dioxide 22 (22-30) mmol/L Anion Gap 20 mmol/L BUN 8 (7-17) mg/dL Creatinine 0.8 (0.7-1.2) mg/dL Estimated GFR > 60 ml/min BUN/Creatinine Ratio 10 % Glucose 155 H (65-100) mg/dL Calcium 8.8 (8.4-10.2) mg/dL Magnesium (1.7-2.3) mg/dL Total Bilirubin 0.40 (0.1-1.2) mg/dL AST 17 (5-40) units/L ALT 14 (7-56) units/L Alkaline Phosphatase 81 (35-129) units/L Total Creatine Kinase (30-135) units/L Troponin T < 0.010 (0.00-0.029) ng/mL Total Protein 7.3 (6.3-8.2) g/dL Albumin 3.9 (3.9-5) g/dL Albumin/Globulin Ratio 1.1 % TSH (0.270-4.200) mlU/mL 02/15/19 02/15/19 02/15/19 Range/Units 19:50 19:51 19:51 WBC (4.5-11.0) K/mm3 RBC (3.65-5.03) M/mm3 Hgb (10.1-14.3) gm/dl Hct (30.3-42.9) % MCV (79-97) fl MCH (28-32) pg MCHC (30-34) % RDW (13.2-15.2) % Plt Count (140-440) K/mm3 Lymph % (Auto) (13.4-35.0) % [place] % (Auto) (0.0-7.3) % Eos % (Auto) (0.0-4.3) % Baso % (Auto) (0.0-1.8) % Lymph # (1.2-5.4) K/mm3 [place] # (0.0-0.8) K/mm3 Eos # (0.0-0.4) K/mm3 Baso # (0.0-0.1) K/mm3 Seg Neutrophils % (40.0-70.0) % Seg Neutrophils # (1.8-7.7) K/mm3 PT (12.2-14.9) Sec. INR (0.87-1.13) APTT (24.2-36.6) Sec. D-Dimer 584.74 H (0-234) ng/mlDDU Sodium (137-145) mmol/L Potassium (3.6-5.0) mmol/L Chloride (98-107) mmol/L Carbon Dioxide (22-30) mmol/L Anion Gap mmol/L BUN (7-17) mg/dL Creatinine (0.7-1.2) mg/dL Estimated GFR ml/min BUN/Creatinine Ratio % Glucose (65-100) mg/dL Calcium (8.4-10.2) mg/dL Magnesium 1.40 L (1.7-2.3) mg/dL Total Bilirubin (0.1-1.2) mg/dL AST (5-40) units/L ALT (7-56) units/L Alkaline Phosphatase (35-129) units/L Total Creatine Kinase 272 H (30-135) units/L Troponin T (0.00-0.029) ng/mL Total Protein (6.3-8.2) g/dL Albumin (3.9-5) g/dL Albumin/Globulin Ratio % TSH 1.300 (0.270-4.200) mlU/mL - EKG Data -: EKG Interpreted by Ca EKG shows normal: sinus rhythm Rate: normal - EKG Data When compared to previous EKG there are: no significant change 02/15/19 22:47 EKG #1 shows a sinus rhythm, 77 bpm, normal axis, QTC within normal limits, CT interval prolonged, poor R wave progression, low voltage, abnormal EKG, not consistent with ST elevation myocardial infarction. There is left ventricular hypertrophy. The EKG today appears to be unchanged from prior EKG from October 27. EKG #2 appears to be unchanged from prior. - Radiology Data Radiology results: report reviewed, image reviewed CT scan of the chest is negative for acute disease. Noncontrast CT scan of the brain is negative for acute disease. - Medical Decision Making Differential diagnosis, including not limited to: Anxiety, electrolyte derangement, thyroid derangement, mitral valve prolapse, acute coronary syndrome, pneumonia, pneumothorax, pulmonary embolism, cervical radiculopathy Assessment and plan: 53-year-old female with a number of nonspecific and seemingly unrelated complaints, including intermittent shortness of breath, lightheadedness, headache, and left arm tingling. Objectively speaking she is clinically sober with a GCS of 15, has NIH score of 0. She walks with a steady gait, and has no cerebellar findings on her examination. Her physical exam is wholly unremarkable. Patient at low risk for major adverse cardiac event, she's had a negative nuclear stress test at this hospital within the past year. Her EKG is unchanged 2, troponin is negative times one. Noncontrast CT scan of the brain is negative, CT scan of the chest is negative for acute disease. Incidentally found to have hypokalemia and hypomagnesemia which we have addressed. The patient does not appear to have an objectively demonstrated emergent medical condition at this time. She can continue her outpatient medications, she'll need to follow up with outpatient cardiology. Troponin #2 is pending at this time. Critical care attestation.: If time is entered above; I have spent that time in minutes in the direct care of this critically ill patient, excluding procedure time. ED Disposition Clinical Impression: Hypokalemia, Hypomagnesemia, History of dyspnea, History of headache, History of hypertension Disposition: DC-01 TO HOME OR SELFCARE Is pt being admited?: No Does the pt Need Aspirin: No Condition: Good Additional Instructions: Patient should continue outpatient medications, with the exception of metformin, which she should not take for the next 2 days. Patient may take the prescribed pain medications as needed and directed, and she should take the potassium as magnesium supplementation as directed. Recommend follow-up with the primary care doctor or fiber optics supervisor within the next 7-10 days for repeat checkup and erasmo luation, and to recheck potassium and magnesium levels. Drink 4-6 cups of water per day for the next 7-10 days. Advance diet as tolerated. Return to emergency room right away with projectile vomiting, change in mental status, confusion, inability to tolerate liquid feeds. Avoid consumption or exposure to tobacco, cannabis, alcohol. Prescriptions: Magnesium Oxide 500 mg PO QDAY #10 capsule Ibuprofen [Motrin] 600 mg PO Q8H PRN #30 tablet PRN Reason: Pain Acetaminophen [Non-Aspirin Extra Strength] 500 mg PO Q6HR PRN #30 tablet PRN Reason: Pain , Severe (7-10) Potassium Chloride 20 meq PO BID #20 packet Referrals: NURYS LINTON MD [Referring] - 3-5 Days LAKSHMI SHAFFER MD [Staff Physician] - 3-5 Days
[2019-02-15 19:47] LABS: INR 0.92 (0.87-1.13)
[2019-02-15 19:48] LABS: Partial Thromboplastin Time 40.1 Sec. (24.2-36.6)
[2019-02-15 19:51] LABS: Basophils # (Auto) 0.1 K/mm3 (0.0-0.1); Basophils % (Auto) 1.4 % (0.0-1.8); Eosinophils # (Auto) 0.3 K/mm3 (0.0-0.4); Eosinophils % (Auto) 3.7 % (0.0-4.3); Hematocrit 34.7 % (30.3-42.9); Hemoglobin 11.5 gm/dl (10.1-14.3); Lymphocytes # (Auto) 3.3 K/mm3 (1.2-5.4); Lymphocytes % (Auto) 37.2 % (13.4-35.0); Mean Corpuscular HGB Conc 33 % (30-34); Mean Corpuscular Volume 82 fl (79-97); Monocytes # (Auto) 0.7 K/mm3 (0.0-0.8); Monocytes % (Auto) 7.4 % (0.0-7.3); Platelet Count 279 K/mm3 (140-440); Red Blood Count 4.22 M/mm3 (3.65-5.03); Red Cell Distribution Width 13.3 % (13.2-15.2)
[2019-02-15 19:52] LABS: Alanine Aminotransferase 14 units/L (7-56); Albumin 3.9 g/dL (3.9-5); BUN/Creatinine Ratio 10; Blood Urea Nitrogen 8 mg/dL (7-17); Calcium 8.8 mg/dL (8.4-10.2); Hemolysis Index 6
[2019-02-15] MEDS ORDERED: K-DUR PO ONE (20:39)
[2019-02-15] MEDS ORDERED: VERSED IV ONE (20:54)
--- NOTE | 2019-02-15 21:51 | Cat Scan Report ---
CT head/brain wo con INDICATION: headache/dizziness. TECHNIQUE: Routine CT head without contrast. All CT scans at this location are performed using CT dos e reduction for ALARA by means of automated exposure control. COMPARISON: Head CT on 12/15/2017. FINDINGS: BRAIN / INTRACRANIAL CONTENTS: No acute hemorrhage, mass effect, midline shift, or hydrocephalus. No appreciable acute large territorial or lacunar infarct. No chronic infarct or focal atrophy. Normal b rain volume and ventricular/sulcal size for age. ORBITS: No significant abnormality of visualized orbits. SINUSES / MASTOIDS: No significant abnormality of visualized sinuses and mastoid air cells. ADDITIONAL FINDINGS: None. IMPRESSION: 1. No acute intracranial abnormality. No adverse change from the prior exam. Signer Name: Zhang Whitehead MD Signed: 02/15/2019 9:47 PM Workstation Name: [id number]
[2019-02-15] MEDS ORDERED: POTASSIUM CHLORIDE PO ONE (22:00)
[2019-02-15] MEDS: KCL 10MEQ/100ML 10 MEQ/100 ML BAG IV SCH ×3 (22:03→23:57)
[2019-02-15] MEDS ORDERED: NACL 0.9% 1000 ML 1,000 ML ONE (22:09)
--- NOTE | 2019-02-15 22:10 | Cat Scan Report ---
CTA of the chest with 3D Reconstruction Indication: ,dyspnea near syncope + d dimer Technique: TECHNIQUE: Axial CT images were obtained through the chest after injection of 100 cc of Omnipaque 350 IV contrast. 3 plane MIP reconstructions were produced. All CT scans at this location are performed using CT dose reduction for ALARA by means of automated exposure control. COMPARISON: CT scan dated 07/24/2018 Automatic exposure control was utilized in an attempt to reduce radiation dose. Findings: Pulmonary arteries: The main pulmonary artery and right and left pulmonary artery branches fill satis factorily with contrast. No pulmonary embolus is seen. Lungs: The lungs are clear. Mediastinum: Heart size is normal. No adenopathy is seen. Aorta: Normal in diameter. No dissection seen within limits of this exam. Impression: No pulmonary embolus is seen Signer Name: Donaldo Díaz MD Signed: 02/15/2019 10:06 PM Workstation Name: [id number]
[2019-02-15] MEDS ORDERED: NACL 0.9% 1000 ML 1,000 ML IV ONE (22:17)
[2019-02-15] MEDS ORDERED: MAGNESIUM SULFATE 2GM/50ML 2 GM/50 ML BAG IV ONE (22:43)
[2019-02-15] MEDS ORDERED: MAG-OX PO ONE (23:00)
[2019-02-15] MEDS ORDERED: APRESOLINE PO ONE (23:23)
[2019-02-15] MEDS ORDERED: APRESOLINE PO SCH (23:45)
[2019-02-16] MEDS ORDERED: LABETALOL PO ONE
[2019-02-16] MEDS: KCL 10MEQ/100ML 10 MEQ/100 ML BAG IV SCH (00:51)
[2019-02-16] MEDS ORDERED: LABETALOL PO SCH ×2 (01:00→10:00)
[2019-02-16 02:39] VITALS: BP 134/74
== END 2019-02-16 02:37 | disposition home or self-care (01) ==
LOC: ED 18:38
DX: E87.6 Hypokalemia (principal); E83.42 Hypomagnesemia; I10 Essential (primary) hypertension; E11.9 Type 2 diabetes mellitus without complications; Z90.49 Acquired absence of other specified parts of digestive tract; Z98.890 Other specified postprocedural states; Z79.899 Other long term (current) drug therapy; Z88.1 Allergy status to other antibiotic agents
CPT/HCPCS: 36415; 70450; 71275; 80053; 82550; 83735; 84443; 84484; 85025; 85379; 85610; 85730; 93005; 93010; 96365; 96367; 96368; 96375; 99284; J2250; J3475; J3480; J7030; Q9967

== ENCOUNTER 2019-02-17 18:55 | Emergency (ER) | payer OTHER ==
--- NOTE | 2019-02-17 19:10 | Emergency Department Report ---
Blank Doc - Documentation Documentation: 53-year-old female that presents with uncontrolled HTN and SOB. This initial assessment/diagnostic orders/clinical plan/treatment(s) is/are subject to change based on patient's health status, clinical progression and re- assessment by fellow clinical providers in the ED. Further treatment and workup at subsequent clinical providers discretion. Patient/guardians urged not to elope from the ED as their condition may be serious if not clinically assessed and managed. Initial orders include: 1- Patient sent to [facility] for further evaluation and treatment 2- labs 3- EKG 4- CXR
[2019-02-17 19:39] LABS: Basophils # (Auto) 0.1 K/mm3 (0.0-0.1); Basophils % (Auto) 1.2 % (0.0-1.8); Eosinophils # (Auto) 0.3 K/mm3 (0.0-0.4); Eosinophils % (Auto) 4.4 % (0.0-4.3); Hematocrit 37.1 % (30.3-42.9); Hemoglobin 12.3 gm/dl (10.1-14.3); Lymphocytes # (Auto) 2.4 K/mm3 (1.2-5.4); Lymphocytes % (Auto) 31.4 % (13.4-35.0); Mean Corpuscular HGB Conc 33 % (30-34); Mean Corpuscular Volume 82 fl (79-97); Monocytes # (Auto) 0.6 K/mm3 (0.0-0.8); Monocytes % (Auto) 8.1 % (0.0-7.3); Platelet Count 295 K/mm3 (140-440); Red Blood Count 4.51 M/mm3 (3.65-5.03); Red Cell Distribution Width 13.9 % (13.2-15.2)
[2019-02-17 19:59] LABS: INR 1.02 (0.87-1.13)
[2019-02-17 20:00] LABS: Partial Thromboplastin Time 45.6 Sec. (24.2-36.6)
[2019-02-17 20:02] LABS: BUN/Creatinine Ratio 11; Blood Urea Nitrogen 8 mg/dL (7-17); Hemolysis Index 0
[2019-02-17] MEDS ORDERED: POTASSIUM CHLORIDE ER 20 MEQ TAB PO ONE (20:16)
[2019-02-17] MEDS ORDERED: MAGNESIUM OXIDE 400 MG TAB PO ONE (20:30)
--- NOTE | 2019-02-17 21:10 | Emergency Department Report ---
ED General Adult HPI - General Chief complaint: High BP Stated complaint: SOB/HBP/199/113 Time Seen by Provider: 02/17/19 19:09 Source: patient Mode of arrival: Ambulatory Limitations: No Limitations - History of Present Illness Initial comments: pt rizwana 53-year-old female that presents with uncontrolled HTN and SOB. Seen 2 days ago for same, had negative cardiac, and pe work up, pt on clonidine, hydralazine, and labetolol for bp control. States adherence, denies stressors. There is no cp, no sob, no diaphoresis, no n/v , no back pain, no dizziness, no lightheadedness, no fever or chills, and no cough. bp: 153/58 at this time. There is no hx of CHF, Edema, no PND, pt has pcp and cardiology follow up with Dr. Delaney. Onset/Timin -: week(s) Radiation: non-radiation Severity scale (0 -10): 3 Consistency: constant Improves with: none Worsens with: none Associated Symptoms: shortness of breath, other (HTN) Treatments Prior to Arrival: none - Related Data Home Medications Medication Instructions Recorded Confirmed Last Taken Furosemide [Lasix TAB] 40 mg PO QDAY PRN 05/14/16 02/15/19 Unknown Labetalol HCl 300 mg PO BID 05/14/16 02/15/19 05/14/16 cloNIDine [Catapres] 0.1 mg PO BID PRN 05/14/16 02/15/19 Unknown metFORMIN [Glucophage] 500 mg PO BID 05/14/16 02/15/19 05/14/16 hydrALAZINE [Apresoline TAB] 100 mg PO BID 08/04/18 02/15/19 Unknown Previous Rx's Medication Instructions Recorded Last Taken Type Acetaminophen [Non-Aspirin Extra 500 mg PO Q6HR PRN #30 tablet 02/15/19 Unknown Rx Strength] Ibuprofen [Motrin] 600 mg PO Q8H PRN #30 tablet 02/15/19 Unknown Rx Magnesium Oxide 500 mg PO QDAY #10 capsule 02/15/19 Unknown Rx Potassium Chloride 20 meq PO BID #20 packet 02/15/19 Unknown Rx Allergies Allergy/AdvReac Type Severity Reaction Status Date / Time ciprofloxacin [From Cipro] Allergy Itching Verified 10/28/18 14:22 ciprofloxacin HCl Allergy Itching Verified 10/28/18 14:22 [From Cipro] metoclopramide HCl Allergy Itching Verified 10/28/18 14:22 [From Reglan] ED Review of Systems ROS: Stated complaint: SOB/HBP/199/113 Other details as noted in HPI Constitutional: denies: chills, fever Eyes: denies: eye pain, eye discharge, vision change ENT: denies: ear pain, throat pain Respiratory: shortness of breath. denies: cough, wheezing Cardiovascular: denies: chest pain, palpitations Endocrine: no symptoms reported Gastrointestinal: denies: abdominal pain, nausea, diarrhea Genitourinary: denies: urgency, dysuria, discharge Musculoskeletal: denies: back pain, joint swelling, arthralgia Skin: denies: rash, lesions Neurological: denies: headache, weakness, paresthesias Psychiatric: anxiety. denies: depression Hematological/Lymphatic: denies: easy bleeding, easy bruising ED Past Medical Hx - Past Medical History Previous Medical History?: Yes Hx Hypertension: Yes Hx Diabetes: Yes Additional medical history: low K+ - Surgical History Past Surgical History?: Yes Hx Cholecystectomy: Yes Additional Surgical History: - Social History Smoking Status: Never Smoker Substance Use Type: None - Medications Home Medications: Home Medications Medication Instructions Recorded Confirmed Last Taken Type Furosemide [Lasix TAB] 40 mg PO QDAY PRN 05/14/16 02/15/19 Unknown History Labetalol HCl 300 mg PO BID 05/14/16 02/15/19 05/14/16 History cloNIDine [Catapres] 0.1 mg PO BID PRN 05/14/16 02/15/19 Unknown History metFORMIN [Glucophage] 500 mg PO BID 05/14/16 02/15/19 05/14/16 History hydrALAZINE [Apresoline TAB] 100 mg PO BID 08/04/18 02/15/19 Unknown History Acetaminophen [Non-Aspirin Extra 500 mg PO Q6HR PRN #30 tablet 02/15/19 Unknown Rx Strength] Ibuprofen [Motrin] 600 mg PO Q8H PRN #30 tablet 02/15/19 Unknown Rx Magnesium Oxide 500 mg PO QDAY #10 capsule 02/15/19 Unknown Rx Potassium Chloride 20 meq PO BID #20 packet 02/15/19 Unknown Rx ED Physical Exam - General Limitations: No Limitations General appearance: alert, in no apparent distress - Head Head exam: Present: atraumatic, normocephalic - Eye Eye exam: Present: normal appearance, PERRL, EOMI Pupils: Present: normal accommodation - ENT ENT exam: Present: mucous membranes moist - Neck Neck exam: Present: normal inspection, full ROM. Absent: tenderness, meningismus, lymphadenopathy, thyromegaly - Respiratory Respiratory exam: Present: normal lung sounds bilaterally. Absent: respiratory distress, wheezes, stridor, chest wall tenderness, prolonged expiratory - Cardiovascular Cardiovascular Exam: Present: regular rate, normal rhythm, normal heart sounds. Absent: systolic murmur, diastolic murmur, rubs, gallop - GI/Abdominal GI/Abdominal exam: Present: soft, normal bowel sounds. Absent: distended, tenderness, bruit, hernia - Rectal Rectal exam: Present: deferred - Extremities Exam Extremities exam: Present: normal inspection, full ROM, normal capillary refill. Absent: tenderness, pedal edema, joint swelling, calf tenderness - Back Exam Back exam: Present: normal inspection, full ROM. Absent: tenderness, CVA tenderness (R), CVA tenderness (L), rash noted - Neurological Exam Neurological exam: Present: alert, oriented X3, CN II-XII intact, normal gait, reflexes normal. Absent: motor sensory deficit - Psychiatric Psychiatric exam: Present: normal affect, anxious - Skin Skin exam: Present: warm, dry, intact, normal color. Absent: rash ED Course Vital Signs 02/17/19 18:59 Temperature 97.9 F Pulse Rate 80 Respiratory 18 Rate Blood Pressure 153/58 O2 Sat by Pulse 97 Oximetry ED Medical Decision Making - Lab Data Result diagrams: 02/17/19 19:22 02/17/19 19:22 - Radiology Data Ordering Physician: ALBERTINA SAL MD Date of Service: 02/15/19 Procedure(s): CT angio chest Accession Number(s): [id number] cc: ALBERTINA SAL MD CTA of the chest with 3D Reconstruction Indication: ,dyspnea near syncope + d dimer Technique: TECHNIQUE: Axial CT images were obtained through the chest after injection of 100 cc of Omnipaque 350 IV contrast. 3 plane MIP reconstructions were produced. All CT scans at this location are performed using CT dose reduction for ALARA by means of automated exposure control. COMPARISON: CT scan dated 07/24/2018 Automatic exposure control was utilized in an attempt to reduce radiation dose. Findings: Pulmonary arteries: The main pulmonary artery and right and left pulmonary artery branches fill satisfactorily with contrast. No pulmonary embolus is seen. Lungs: The lungs are clear. Mediastinum: Heart size is normal. No adenopathy is seen. Aorta: Normal in diameter. No dissection seen within limits of this exam. Impression: No pulmonary embolus is seen Signer Name: Donaldo Díaz MD Signed: 02/15/2019 10:06 PM Workstation Name: [id number] Transcribed By: Dictated By: Donaldo Díaz MD Electronically Authenticated By: Donaldo Díaz MD Signed Date/Time: 02/15/192205 DD/ 02 TD/TT: Ordering Physician: CASSIE BILLINGSLEY NP Date of Service: 02/17/19 Procedure(s): XR chest routine 2V Accession Number(s): [id number] cc: CASSIE BILLINGSLEY NP Fluoro Time In Minutes: CHEST 2 VIEWS INDICATION: Chest Pain. COMPARISON: 07/24/2018 FINDINGS: Support devices: None. Heart: Within normal limits. Lungs: No acute air space or interstitial disease. Pleura: No significant pleural effusion. No pneumothorax. Additional findings: None. IMPRESSION: 1. No acute findings. Signer Name: Amish Chamorro MD Signed: 02/17/2019 9:15 PM Workstation Name: [id number] Transcribed By: Dictated By: Amish Chamorro MD Electronically Authenticated By: Amish Chamorro MD Signed Date/Time: 02/17/192114 DD/ 12 TD/TT: - Medical Decision Making cxr : normal, heart score is 1 for hx, trop neg, JAY:0, trop < 0.01, bp: 158/83 plan dc to home , continue current medications, follow up with pcp in 2-3 days. return to ed if symptoms worsen. pt verbalized agreement and understanding of same, pt dc'd to home in stable condition at this time. Critical care attestation.: If time is entered above; I have spent that time in minutes in the direct care of this critically ill patient, excluding procedure time. ED Disposition Clinical Impression: HTN (hypertension) Qualifiers: Hypertension type: essential hypertension Qualified Code(s): I10 - Essential (primary) hypertension Disposition: TO HOME OR SELFCARE Is pt being admited?: No Does the pt Need Aspirin: No Condition: Stable Instructions: Hypertension (ED) Additional Instructions: follow up with Dr. Watson for bp medication adjustment in 2-3 days. Return to ed if symptoms worsen. Referrals: PRIMARY CARE, [Primary Care Provider] - 3-5 Days Forms: Work/School Release Form(ED) Time of Disposition: 22:07
--- NOTE | 2019-02-17 21:20 | XRay Report ---
CHEST 2 VIEWS INDICATION: Chest Pain. COMPARISON: 07/24/2018 FINDINGS: Support devices: None. Heart: Within normal limits. Lungs: No acute air space or interstitial disease. Pleura: No significant pleural effusion. No pneumothorax. Additional findings: None. IMPRESSION: 1. No acute findings. Signer Name: Amish Chamorro MD Signed: 02/17/2019 9:15 PM Workstation Name: [id number]
[2019-02-17 22:53] VITALS: BP 152/74
== END 2019-02-17 22:56 | disposition home or self-care (01) ==
LOC: ED 18:55
DX: I10 Essential (primary) hypertension (principal); E11.9 Type 2 diabetes mellitus without complications; Z90.49 Acquired absence of other specified parts of digestive tract; Z79.899 Other long term (current) drug therapy; Z88.1 Allergy status to other antibiotic agents
CPT/HCPCS: 36415; 71046; 80048; 84484; 85025; 85610; 85730; 93005; 93010

== ENCOUNTER 2019-10-21 19:33 | Observation (INO) | payer OTHER ==
[2019-10-21] MEDS ORDERED: hydrALAZINE 20 MG/1 ML INJ ONE (20:22)
--- NOTE | 2019-10-21 20:22 | Emergency Department Report ---
ED Neuro Deficit HPI - General Chief Complaint: High BP Stated Complaint: BLOOD PRESSURE PROBLEM Source: patient Mode of arrival: Ambulatory Limitations: No Limitations - History of Present Illness Initial Comments: [facility] Date of Service: 10/21/2019 19:56:23 Impression: Dizzy Comments/Sign-Out: Acute onset dizziness in the setting of hypertensive spike. Possible just due to hypertensive urgency. Non focal examination at this time suggesting less likely stroke related. Metrics: Last Known Well: 10/21/2019 14:00:00 [employer] Notification Time: 10/21/2019 19:55:54 Arrival Time: 10/21/2019 19:35:00 Stamp Time: 10/21/2019 19:56:23 Time First Login Attempt: 10/21/2019 20:00:07 Video Start Time: 10/21/2019 20:00:07 Symptoms: Weakness NIHSS Start Assessment Time: 10/21/2019 20:06:25 Patient is not a candidate for tPA. Patient was not deemed candidate for tPA thrombolytics because of Resolved sympt oms (no residual disabling symptoms). Video End Time: 10/21/2019 20:17:58 CT head showed no acute hemorrhage or acute core infarct. Clinical Presentation is not Suggestive of Large Vessel Occlusive Disease ED Physician notified of diagnostic impression and management plan on 10/21/2019 20:17:57 Our recommendations are outlined below. Recommendations: Activate Stroke Protocol Admission/Order Set Stroke/Telemetry Floor Neuro Checks Bedside Swallow Eval DVT Prophylaxis IV Fluids, Normal Saline Head of Bed 30 Degrees Euglycemia and Avoid Hyperthermia (PRN Acetaminophen) Antiplatelet Therapy Recommended MRI brain, MRA head and neck Routine Consultation with Inhouse Neurology for Follow up Care Sign Out: Discussed with Emergency Department Provider History of Present Illness: Patient is a 54 year old Female. Patient was brought by private transportation with symptoms of Weakness Hx of HTN, DM2 Sx: was at home and felt dizzy and she checked SBP which was 200. She took a clonidine and she continues to feel flushed and still lightheaded. Examination: BP(191/100), Blood Glucose(92) 1A: Level of Consciousness - Alert; keenly responsive + 0 1B: Ask Month and Age - Both Questions Right + 0 1C: Blink Eyes & Squeeze Hands - Performs Both Tasks + 0 2: Test Horizontal Extraocular Movements - Normal + 0 3: Test Visual Lala - No Visual Loss + 0 4: Test Facial Palsy (Use Grimace if Obtunded) - Normal symmetry + 0 5A: Test Left Arm Motor Drift - No Drift for 10 Seconds + 0 5B: Test Right Arm Motor Drift - No Drift for 10 Seconds + 0 6A: Test Left Leg Motor Drift - No Drift for 5 Seconds + 0 6B: Test Right Leg Motor Drift - No Drift for 5 Seconds + 0 7: Test Limb Ataxia (FNF/Heel-Alfred) - No Ataxia + 0 8: Test Sensation - Normal; No sensory loss + 0 9: Test Language/Aphasia - Normal; No aphasia + 0 10: Test Dysarthria - Normal + 0 11: Test Extinction/Inattention - No abnormality + 0 NIHSS Score: 0 Patient/Family was informed the Neurology Consult would happen via TeleHealth consult by way of interactive audio and video telecommunications and consented to receiving care in this manner. Due to the immediate potential for life-threatening deterioration due to underlying acute neurologic illness, I spent 35 minutes providing critical care. This time includes time for face to face visit via telemedicine, review of medical records, imaging studies and discussion of findings with providers, the patient and/or family. Dr Oli Gibbons [facility] Case [id number] - Related Data Home Medications: Home Medications Medication Instructions Recorded Confirmed Last Taken Furosemide [Lasix TAB] 40 mg PO QDAY PRN 05/14/16 02/15/19 Unknown Labetalol HCl 300 mg PO BID 05/14/16 02/15/19 05/14/16 cloNIDine [Catapres] 0.1 mg PO BID PRN 05/14/16 02/15/19 Unknown metFORMIN [Glucophage] 500 mg PO BID 05/14/16 02/15/19 05/14/16 hydrALAZINE [Apresoline TAB] 100 mg PO BID 08/04/18 02/15/19 Unknown Previous Rx's Medication Instructions Recorded Last Taken Type Acetaminophen [Non-Aspirin Extra 500 mg PO Q6HR PRN #30 tablet 02/15/19 Unknown Rx Strength] Ibuprofen [Motrin] 600 mg PO Q8H PRN #30 tablet 02/15/19 Unknown Rx Magnesium Oxide 500 mg PO QDAY #10 capsule 02/15/19 Unknown Rx Potassium Chloride 20 meq PO BID #20 packet 02/15/19 Unknown Rx Allergies/Adverse Reactions: Allergies Allergy/AdvReac Type Severity Reaction Status Date / Time ciprofloxacin [From Cipro] Allergy Itching Verified 10/28/18 14:22 ciprofloxacin HCl Allergy Itching Verified 10/28/18 14:22 [From Cipro] metoclopramide HCl Allergy Itching Verified 10/28/18 14:22 [From Reglan] ED Review of Systems ROS: Stated complaint: BLOOD PRESSURE PROBLEM Other details as noted in HPI ED Past Medical Hx - Past Medical History Previous Medical History?: Yes Hx Hypertension: Yes Hx Diabetes: Yes Additional medical history: low K+ - Surgical History Past Surgical History?: Yes Hx Cholecystectomy: Yes Additional Surgical History: - Social History Smoking Status: Never Smoker Substance Use Type: None - Medications Home Medications: Home Medications Medication Instructions Recorded Confirmed Last Taken Type Furosemide [Lasix TAB] 40 mg PO QDAY PRN 05/14/16 02/15/19 Unknown History Labetalol HCl 300 mg PO BID 05/14/16 02/15/19 05/14/16 History cloNIDine [Catapres] 0.1 mg PO BID PRN 05/14/16 02/15/19 Unknown History metFORMIN [Glucophage] 500 mg PO BID 05/14/16 02/15/19 05/14/16 History hydrALAZINE [Apresoline TAB] 100 mg PO BID 08/04/18 02/15/19 Unknown History Acetaminophen [Non-Aspirin Extra 500 mg PO Q6HR PRN #30 tablet 02/15/19 Unknown Rx Strength] Ibuprofen [Motrin] 600 mg PO Q8H PRN #30 tablet 02/15/19 Unknown Rx Magnesium Oxide 500 mg PO QDAY #10 capsule 02/15/19 Unknown Rx Potassium Chloride 20 meq PO BID #20 packet 02/15/19 Unknown Rx ED Neuro Physical Exam - General Limitations: No Limitations Suspected Stroke: No (not suspected) ED Course Vital Signs 10/21/19 19:43 Temperature 98.3 F Pulse Rate 86 Respiratory 22 Rate Blood Pressure 171/92 O2 Sat by Pulse 99 Oximetry - Lab Data Lab Results 10/21/19 Range/Units 20:13 POC Glucose 92 (70-105) Critical care attestation.: If time is entered above; I have spent that time in minutes in the direct care of this critically ill patient, excluding procedure time. ED Disposition Clinical Impression: HTN (hypertension), malignant Disposition: [id number] OP ADMIT IP TO THIS HOSP Is pt being admited?: Yes Does the pt Need Aspirin: Yes (81mg) Condition: Fair Instructions: Hypertension (ED) Time of Disposition: 20:22
--- NOTE | 2019-10-21 20:26 | Emergency Department Report ---
ED Dizziness HPI - General Chief Complaint: High BP Stated Complaint: BLOOD PRESSURE PROBLEM Time Seen by Provider: 10/21/19 20:05 Source: patient Mode of arrival: Ambulatory Limitations: No Limitations - History of Present Illness Initial Comments: Patient is a 54-year-old female that presents emergency room with complaints of dizziness, nausea, weakness, near syncope. Patient states that her symptoms started approximately 1 hour prior to arrival. Patient states that her's blood pressures been up all day. Patient states she is compliant with her meds. Patient denies chest pain. Patient denies shortness of breath. Patient denies fever chills. Patient denies cough. Patient states her symptoms are better with rest and worse with exertion and movement. Patient denies recent travel. Patient denies recent international travel. Patient denies exposure to the novel coronavirus. Patient denies sick contacts. Patient denies fever and chills. Patient denies cough. Patient denies diarrhea. Patient denies coming in contact with anybody with symptoms of the novel coronavirus. MD Complaint: dizziness, lightheadedness -: Sudden Timing: sudden onset Description: sense of movement, "room spinning", lightheadedness, off-balance, near-syncope History of Same: No History of Trauma: No Severity: severe Improves With: rest Worsens With: movement, exertion Associated Symptoms: weakness. denies: chest pain, confusion, cough, diaphoresis, fever/chills, loss of appetite, malaise, rash, seizure, shortness of breath - Related Data Home Medications Medication Instructions Recorded Confirmed Last Taken Furosemide [Lasix TAB] 40 mg PO QDAY PRN 05/14/16 02/15/19 Unknown Labetalol HCl 300 mg PO BID 05/14/16 02/15/19 05/14/16 cloNIDine [Catapres] 0.1 mg PO BID PRN 05/14/16 02/15/19 Unknown metFORMIN [Glucophage] 500 mg PO BID 05/14/16 02/15/19 05/14/16 hydrALAZINE [Apresoline TAB] 100 mg PO BID 08/04/18 02/15/19 Unknown Previous Rx's Medication Instructions Recorded Last Taken Type Acetaminophen [Non-Aspirin Extra 500 mg PO Q6HR PRN #30 tablet 02/15/19 Unknown Rx Strength] Ibuprofen [Motrin] 600 mg PO Q8H PRN #30 tablet 02/15/19 Unknown Rx Magnesium Oxide 500 mg PO QDAY #10 capsule 02/15/19 Unknown Rx Potassium Chloride 20 meq PO BID #20 packet 02/15/19 Unknown Rx Allergies Allergy/AdvReac Type Severity Reaction Status Date / Time ciprofloxacin [From Cipro] Allergy Itching Verified 10/28/18 14:22 ciprofloxacin HCl Allergy Itching Verified 10/28/18 14:22 [From Cipro] metoclopramide HCl Allergy Itching Verified 10/28/18 14:22 [From Reglan] ED Review of Systems ROS: Stated complaint: BLOOD PRESSURE PROBLEM Other details as noted in HPI Constitutional: denies: chills, fever Eyes: denies: eye pain, eye discharge, vision change ENT: denies: ear pain, throat pain Respiratory: denies: cough, shortness of breath, wheezing Cardiovascular: denies: chest pain, palpitations Endocrine: no symptoms reported Gastrointestinal: denies: abdominal pain, nausea, diarrhea Genitourinary: denies: urgency, dysuria, discharge Musculoskeletal: denies: back pain, joint swelling, arthralgia Skin: denies: rash, lesions Neurological: as per HPI, headache, weakness Psychiatric: denies: anxiety, depression Hematological/Lymphatic: denies: easy bleeding, easy bruising ED Past Medical Hx - Past Medical History Previous Medical History?: Yes Hx Hypertension: Yes Hx Diabetes: Yes Additional medical history: low K+ - Surgical History Past Surgical History?: Yes Hx Cholecystectomy: Yes Additional Surgical History: - Family History Family history: no significant - Social History Smoking Status: Never Smoker Substance Use Type: None - Medications Home Medications: Home Medications Medication Instructions Recorded Confirmed Last Taken Type Furosemide [Lasix TAB] 40 mg PO QDAY PRN 05/14/16 02/15/19 Unknown History Labetalol HCl 300 mg PO BID 05/14/16 02/15/19 05/14/16 History cloNIDine [Catapres] 0.1 mg PO BID PRN 05/14/16 02/15/19 Unknown History metFORMIN [Glucophage] 500 mg PO BID 05/14/16 02/15/19 05/14/16 History hydrALAZINE [Apresoline TAB] 100 mg PO BID 08/04/18 02/15/19 Unknown History Acetaminophen [Non-Aspirin Extra 500 mg PO Q6HR PRN #30 tablet 02/15/19 Unknown Rx Strength] Ibuprofen [Motrin] 600 mg PO Q8H PRN #30 tablet 02/15/19 Unknown Rx Magnesium Oxide 500 mg PO QDAY #10 capsule 02/15/19 Unknown Rx Potassium Chloride 20 meq PO BID #20 packet 02/15/19 Unknown Rx ED Physical Exam - General Limitations: No Limitations General appearance: alert, in no apparent distress - Head Head exam: Present: atraumatic, normocephalic - Eye Eye exam: Present: normal appearance, PERRL Pupils: Present: normal accommodation - ENT ENT exam: Present: mucous membranes moist - Neck Neck exam: Present: normal inspection - Respiratory Respiratory exam: Present: normal lung sounds bilaterally. Absent: respiratory distress - Cardiovascular Cardiovascular Exam: Present: regular rate, normal rhythm. Absent: systolic murmur, diastolic murmur, rubs, gallop - GI/Abdominal GI/Abdominal exam: Present: soft, normal bowel sounds - Extremities Exam Extremities exam: Present: normal inspection - Back Exam Back exam: Present: normal inspection - Neurological Exam Neurological exam: Present: alert, oriented X3 - Psychiatric Psychiatric exam: Present: normal affect, normal mood - Skin Skin exam: Present: warm, dry, intact, normal color. Absent: rash ED Course Vital Signs 10/21/19 10/21/19 19:43 20:28 Temperature 98.3 F Pulse Rate 86 Respiratory 22 20 Rate Blood Pressure 171/92 O2 Sat by Pulse 99 Oximetry - Reevaluation(s) Reevaluation #1: Code stroke initiated. Neurology consulted. 10/21/19 19:54 Reevaluation #2: Patient's blood pressure has improved with the hydralazine 20 mg. I discussed all results with patient. I discussed plan of care with patient. Patient agrees with plan of care and admission. Patient to be admitted to the hospitalist service. 10/21/19 21:05 - Consultations Consultation #1: I discussed case with neurologist. Neurologist recommends admission for an MRI and blood pressure control. 10/21/19 20:19 Consultation #2: Hospitalist consulted for admission. Hospitalist to admit patient. 10/21/19 21:08 ED Medical Decision Making - Lab Data Result diagrams: 10/21/19 20:25 10/21/19 20:25 - EKG Data -: EKG Interpreted by Me EKG shows normal: sinus rhythm, axis, intervals, QRS complexes, ST-T waves Rate: normal - Radiology Data Radiology results: report reviewed, image reviewed CT head/brain wo con INDICATION / CLINICAL INFORMATION: 54 years Female; neuro deficits <6hrs or sx present upon awakening. Hyperten stephen; dizziness; nausea and vomiting TECHNIQUE: Routine CT head without contrast. All CT scans at this location are performed using CT dose reduction for ALARA by means of automated exposure control. COMPARISON: None. FINDINGS: BRAIN / INTRACRANIAL CONTENTS: No acute hemorrhage, mass effect, midline shift, hydrocephalus, or acute, large territorial infarct. No chronic infarct or atrophy appreciated. No significant white matter abnormality. CRANIOCERVICAL JUNCTION: No significant abnormality. ORBITS: No significant abnormality of visualized orbits. SINUSES / MASTOIDS: Mild mucosal thickening seen in the ethmoids. ADDITIONAL FINDINGS: None. IMPRESSION: 1. No focal mass, hemorrhage, hydrocephalus, or acute, large territorial infarct. - Medical Decision Making Patient is a 54-year-old female that presents emergency room with multiple neur ologic complaints. Patient's complaints include dizziness, near syncope, headache, nausea, weakness. Patient has uncontrolled blood pressure. Patient's blood pressure was greater than 200 all day. Patient had a code stroke initiated due to her neurologic symptoms and her blood pressure. Patient was seen by neurology early in her course and neurology recommended admission for MRI and acute CVA work-up. Patient given hydralazine her blood pressure improved. Patient admitted to the hospitalist service. Patient's labs are unremarkable. - Differential Diagnosis CVA, weakness, near syncope, dizziness, malignant hypertension, encephalopa Critical Care Time: Yes Critical care time in (mins) excluding proc time.: 35 Critical care attestation.: If time is entered above; I have spent that time in minutes in the direct care of this critically ill patient, excluding procedure time. Critical Care Time: 35 minutes ED Disposition Clinical Impression: HTN (hypertension), malignant, Dizziness, Near syncope Head ache Qualifiers: Headache type: unspecified Headache chronicity pattern: acute headache Intractability: not intractable Qualified Code(s): R51 - Headache Disposition: OP ADMIT IP TO THIS HOSP Is pt being admited?: Yes Does the pt Need Aspirin: No Condition: Critical Time of Disposition: 21:08 - Assessment Assessment Interval: Baseline - Level of Consciousness 1a. Level of Consciousness: alert/keenly responsive - LOC Questions 1b. LOC Questions: answers both correctly - LOC Command 1c. LOC Commands: performs tasks correctly - Best Gaze 2. Best Gaze: normal - Visual 3. Visual: no visual loss - Facial Palsy 4. Facial Palsy: normal symmetrical movement - Motor Arm 5a. Motor Arm Left: no drift 5b. Motor Arm Right: no drift - Motor Leg 6a. Motor Leg Left: no drift 6b. Motor Leg Right: no drift - Limb Ataxia 7. Limb Ataxia: absent - Sensory 8. Sensory: normal - Best Language 9. Best Language: no aphasia - Dysarthria 10. Dysarthria: normal - Extinction and Inattention 11. Extinction/Inattention: no abnormality - Scoring Total Score: 0 Stroke Severity: No Stroke Symptoms
--- NOTE | 2019-10-21 20:27 | Cat Scan Report ---
CT head/brain wo con INDICATION / CLINICAL INFORMATION: 54 years Female; neuro deficits <6hrs or sx present upon awakening. Hypertension; dizziness; nausea a nd vomiting TECHNIQUE: Routine CT head without contrast. All CT scans at this location are performed using CT dos e reduction for ALARA by means of automated exposure control. COMPARISON: None. FINDINGS: BRAIN / INTRACRANIAL CONTENTS: No acute hemorrhage, mass effect, midline shift, hydrocephalus, or acu te, large territorial infarct. No chronic infarct or atrophy appreciated. No significant white matter abnormality. CRANIOCERVICAL JUNCTION: No significant abnormality. ORBITS: No significant abnormality of visualized orbits. SINUSES / MASTOIDS: Mild mucosal thickening seen in the ethmoids. ADDITIONAL FINDINGS: None. IMPRESSION: 1. No focal mass, hemorrhage, hydrocephalus, or acute, large territorial infarct. This exam was performed as part of a code stroke protocol. The exam was completed on 10/21/2019 7:10 P M. The exam was reviewed at 7:[address] Sue was notified at 7:22 PM. Signer Name: Zbigniew Hernandez MD, III Signed: 10/21/2019 8:23 PM Workstation Name: [facility] HOSPITALReachTaxMICHAEL [id number]
[2019-10-21 20:34] LABS: Basophils # (Auto) 0.1 K/mm3 (0.0-0.1); Basophils % (Auto) 1.1 % (0.0-1.8); Eosinophils # (Auto) 0.3 K/mm3 (0.0-0.4); Eosinophils % (Auto) 4.1 % (0.0-4.3); Hematocrit 36.3 % (30.3-42.9); Hemoglobin 12.3 gm/dl (10.1-14.3); Lymphocytes # (Auto) 1.9 K/mm3 (1.2-5.4); Lymphocytes % (Auto) 24.1 % (13.4-35.0); Mean Corpuscular HGB Conc 34 % (30-34); Mean Corpuscular Volume 82 fl (79-97); Monocytes # (Auto) 0.4 K/mm3 (0.0-0.8); Monocytes % (Auto) 5.5 % (0.0-7.3); Platelet Count 272 K/mm3 (140-440); Red Blood Count 4.42 M/mm3 (3.65-5.03); Red Cell Distribution Width 13.9 % (13.2-15.2)
[2019-10-21 20:46] LABS: INR 0.96 (0.87-1.13); Partial Thromboplastin Time 38.6 Sec. (24.2-36.6)
[2019-10-21 20:56] LABS: BUN/Creatinine Ratio 13; Blood Urea Nitrogen 10 mg/dL (7-17); Calcium 9.6 mg/dL (8.4-10.2); Hemolysis Index 0
[2019-10-21 22:22] VITALS: BP 136/69
[2019-10-21] MEDS ORDERED: METOCLOPRAMIDE 10 MG TAB PO PRN (22:27)
[2019-10-21] MEDS ORDERED: ONDANSETRON 4 MG/2 ML INJ IV PRN (22:27)
[2019-10-21] MEDS ORDERED: MAGNESIUM HYDROXIDE (MOM) ORAL LIQD UDC PO PRN (22:27)
[2019-10-21] MEDS ORDERED: ACETAMINOPHEN 325 MG TAB PO PRN (22:27)
[2019-10-21] MEDS ORDERED: DEXTROSE 50% IN WATER (25GM) 50 ML SYRINGE IV PRN (22:27)
[2019-10-21] MEDS ORDERED: PROMETHAZINE 25 MG RECT SUPP PR PRN (22:27)
[2019-10-21] MEDS ORDERED: MORPHINE 2 MG/1 ML INJ IV PRN (22:27)
[2019-10-21] MEDS ORDERED: hydrALAZINE 20 MG/1 ML INJ IV PRN (22:44)
[2019-10-21] MEDS ORDERED: HYDROmorphone 1 MG/1 ML INJ IV ONE (23:56)
--- NOTE | 2019-10-22 00:16 | History and Physical Report ---
History of Present Illness Date of examination: 10/21/19 Date of admission: 10/21/19 21:42 Chief complaint: Dizziness Headache Nausea vomiting History of present illness: 54-year-old female with known history of hypertension, diabetes mellitus who presents to the emergency room today with dizziness, near syncope and headache. She denies any fever or chills, no vomiting or diarrhea, no shortness of breath, no chest pain. Patient had some headache. Patient denies any sick contacts and no recent travel.. No contact with anyone with COVID-19. Upon arrival in the emergency room blood pressure was said to be quite elevated and she received some IV hydralazine with improvement in her blood pressure. Patient was evaluated by teleneurologist and recommendation is to have patient worked up for possible CVA and also to get blood pressure under control. Work-up in the emergency room so far including CT scan of the head has been unremarkable. I was later informed by the nursing staff in the emergency room the patient had signed out AGAINST MEDICAL ADVICE. Past History Past Medical History: diabetes, hypertension Past Surgical History: cholecystectomy, Social history: no significant social history Family history: no significant family history Medications and Allergies Allergies Allergy/AdvReac Type Severity Reaction Status Date / Time ciprofloxacin [From Cipro] Allergy Itching Verified 10/28/18 14:22 ciprofloxacin HCl Allergy Itching Verified 10/28/18 14:22 [From Cipro] metoclopramide HCl Allergy Itching Verified 10/28/18 14:22 [From Reglan] Home Medications Medication Instructions Recorded Confirmed Last Taken Type Furosemide [Lasix TAB] 40 mg PO QDAY PRN 05/14/16 02/15/19 Unknown History Labetalol HCl 300 mg PO BID 05/14/16 02/15/19 05/14/16 History cloNIDine [Catapres] 0.1 mg PO BID PRN 05/14/16 02/15/19 Unknown History metFORMIN [Glucophage] 500 mg PO BID 05/14/16 02/15/19 05/14/16 History hydrALAZINE [Apresoline TAB] 100 mg PO BID 08/04/18 02/15/19 Unknown History Acetaminophen [Non-Aspirin Extra 500 mg PO Q6HR PRN #30 tablet 02/15/19 Unknown Rx Strength] Ibuprofen [Motrin] 600 mg PO Q8H PRN #30 tablet 02/15/19 Unknown Rx Magnesium Oxide 500 mg PO QDAY #10 capsule 02/15/19 Unknown Rx Potassium Chloride 20 meq PO BID #20 packet 02/15/19 Unknown Rx Review of Systems Constitutional: no fever, no chills Ears, nose, mouth and throat: no nasal congestion, no sore throat Cardiovascular: no chest pain, no palpitations Respiratory: no cough, no shortness of breath Gastrointestinal: nausea, vomiting, no abdominal pain, no diarrhea, no constipation Genitourinary Female: no flank pain, no dysuria, no hematuria Musculoskeletal: no neck pain, no low back pain Integumentary: no rash, no pruritis Neurological: syncope (Had a near syncope), headaches, no weakness, no parathesias, no confusion Psychiatric: no anxiety, no depression Exam - Constitutional Vitals: Temp Pulse Resp BP Pulse Ox 98.3 F 89 14 136/69 96 10/21/19 19:43 10/21/19 22:20 10/21/19 22:20 10/21/19 22:20 10/21/19 22:20 General appearance: Present: no acute distress, well-nourished - EENT Eyes: Present: PERRL, EOM intact ENT: hearing intact, clear oral mucosa, dentition normal - Neck Neck: Present: supple, normal ROM - Respiratory Respiratory effort: normal Respiratory: bilateral: CTA - Cardiovascular Rhythm: regular Heart Sounds: Present: S1 & S2. Absent: systolic murmur, diastolic murmur - Extremities Extremities: no ischemia, pulses intact, pulses symmetrical, No edema, Full ROM Peripheral Pulses: within normal limits - Abdominal General gastrointestinal: Present: soft, non-tender, non-distended, normal bowel sounds - Integumentary Integumentary: Present: clear, warm, dry. Absent: jaundice, rash - Musculoskeletal Musculoskeletal: strength equal bilaterally - Psychiatric Psychiatric: appropriate mood/affect, intact judgment & insight, cooperative - Neurologic Neurologic: CNII-XII intact, no focal deficits, moves all extremities HEART Score - HEART Score Troponin: Troponin T < 0.010 ng/mL (0.00-0.029) 10/21/19 20:25 Results - Labs CBC & Chem 7: 10/21/19 20:25 10/21/19 20:25 Labs: Abnormal lab results 10/21/19 10/21/19 10/21/19 Range/Units 20:25 20:25 20:25 APTT 38.6 H (24.2-36.6) Sec. Thrombin Time 14.5 L (15.1-19.6) Sec. Potassium 3.4 L (3.6-5.0) mmol/L Glucose 107 H (65-100) mg/dL Assessment and Plan - Patient Problems (1) HTN (hypertension), malignant Status: Acute Plan to address problem: Patient had IV hydralazine. Will restart on her routine home medications and monitor vital signs closely. (2) Head ache Status: Acute Qualifiers: Headache type: unspecified Headache chronicity pattern: acute headache Intractability: not intractable Qualified Code(s): R51 - Headache Plan to address problem: Possibly secondary to the elevated blood pressure. Patient was given some analgesic medication. Patient will be worked up for possible CVA. We will schedule for MRI of the brain, carotid Doppler. Patient placed on daily aspirin. (3) Near syncope Status: Acute Plan to address problem: Patient will be closely monitored on telemetry. We will schedule patient for echocardiogram and continue to monitor vital signs closely. (4) DVT prophylaxis Status: Acute Plan to address problem: Patient placed on subcutaneous heparin. (5) Full code status Status: Acute
[2019-10-22] MEDS ORDERED: HEPARIN 5,000 UNIT/1 ML VIAL SUB-Q SCH (06:00)
[2019-10-22] MEDS ORDERED: INSULIN LISPRO 100 UNIT/ML SUB-Q SCH (07:30)
[2019-10-22] MEDS ORDERED: ASPIRIN 325 MG TAB PO SCH (10:00)
== END 2019-10-21 23:52 | disposition left against medical advice (07) ==
LOC: ED 19:33 → 4A 21:42
PROVIDERS: ADMIT Internal Medicine Geriatric Medicine; ATTEND Internal Medicine Geriatric Medicine
DX: I10 Essential (primary) hypertension (principal); R51 Headache; R55 Syncope and collapse; E11.9 Type 2 diabetes mellitus without complications; Z90.49 Acquired absence of other specified parts of digestive tract; Z79.84 Long term (current) use of oral hypoglycemic drugs; Z79.899 Other long term (current) drug therapy; Z88.1 Allergy status to other antibiotic agents; Z88.8 Allergy status to other drugs, medicaments and biological substances
CPT/HCPCS: 36415; 70450; 80048; 82962; 84484; 85025; 85610; 85670; 85730; 93005; 99291; G0378; J0360